=== PATIENT | female | born 1985 | race Two or more races ===

== ENCOUNTER 2023-01-29 20:41 | Inpatient (IN) | payer MEDICAID, OTHER ==
[~2023-01-29] VITALS: Ht 170.2 cm; Wt 113.4 kg
[2023-01-29 21:54] LABS: Eosinophils # (auto) 0 10 ^3/uL (0-0.8); Eosinophils % (auto) 0.7 % (0.0-7.0); Hemoglobin 8.6 g/dL (12.2-16.2); INR 0.98 (0.9-1.15); Mean Corpuscular Volume 70.8 fL (80.0-100.0); Monocytes # (auto) 0.3 10 ^3/uL (0-1.3); Nucleated Red Blood Cells % 0.1 %; Partial Thromboplastin Time 25.4 SEC (24.5-34.5); Prothrombin Time 10.3 sec (9.3-11.8); Red Cell Distribution Width 21.6 % (11.8-14.3); White Blood Cell 3.3 10^3/uL (4.4-10.8)
[2023-01-29 21:55] LABS: Basophils # (auto) 0 10 ^3/uL (0-0.2); Hematocrit 28.4 % (36.0-46.0); Lymphocytes # (auto) 1.1 10 ^3/uL (0.4-5.4); Lymphocytes % (auto) 32.1 % (10.0-50.0); Mean Corpuscular Hemoglobin 21.4 pg (28.0-32.0); Mean Corpuscular Hgb Conc. 30.2 g/dL (32.0-36.0); Monocytes % (auto) 9.7 % (0.0-12.0); Neutrophils # (auto) 1.9 10 ^3/uL (1.6-8.6); Neutrophils % (auto) 56.5 % (37.0-80.0); Red Blood Cells 4.02 10^6/uL (4.0-5.20)
[2023-01-29 22:01] LABS: Alanine Aminotransferase 125 U/L (7-40); Albumin 4.1 g/dL (3.2-4.8); Alkaline Phosphatase 190 U/L (46-116); Anion Gap 13 (5-15); Aspartate Aminotransferase 538 U/L (13-40); BUN/Creatinine Ratio 11.7 (10.0-20.0); Bilirubin, Total 0.9 mg/dL (0.2-1.0); Blood Urea Nitrogen 7 mg/dL (9-23); Calcium 8.2 mg/dL (8.7-10.4); Carbon Dioxide 21 mmol/L (20-30); Chloride 105 mmol/L (98-107); Glucose 86 mg/dL (74-106); Potassium 3.3 mmol/L (3.5-5.1); Sodium 139 mmol/L (136-145); Total Protein 6.9 g/dL (5.7-8.2)
[2023-01-29 22:09] LABS: Blood Alcohol 314.9 mg/dL (<10)
[2023-01-29 22:15] LABS: Hypochromia Moderate; Platelet Estimate Adequate
[2023-01-29 22:16] LABS: Anisocytosis Slight; Stomatocytes Few
[2023-01-29 22:17] LABS: Tear Drop Cells FEW
[2023-01-29] MEDS ORDERED: ASPirin 325 MG TAB PO ONE (23:00)
[2023-01-29] MEDS ORDERED: NITROGLYCERIN 2% OINT 1GM PKG TD ONE (23:00)
[2023-01-30] MEDS ORDERED: HYDROcodone-ACET 5/325MG TAB PO PRN (00:15)
[2023-01-30] MEDS ORDERED: DOCUSATE SOD 100 MG CAP PO PRN (00:15)
[2023-01-30] MEDS ORDERED: MORPHINE SULFATE INJ 2 MG/ml SYRG IV PRN (00:15)
[2023-01-30] MEDS ORDERED: ACETAMINOPHEN 325 MG TAB PO PRN (00:15)
[2023-01-30] MEDS ORDERED: THIAMINE HCL 100 MG TAB PO ONE (00:15)
[2023-01-30] MEDS ORDERED: ONDANSETRON HCL 4 MG/2 ML VIAL IV PRN (00:15)
[2023-01-30] MEDS ORDERED: NITROGLYCERIN 0.4 MG SL TAB SL PRN (00:15)
[2023-01-30] MEDS ORDERED: MULTIPLE VITAMIN TAB PO ONE (00:15)
[2023-01-30] MEDS ORDERED: LORazepam 2MG/ML-1ML VIAL IV PRN (00:15)
[2023-01-30] MEDS ORDERED: FOLIC ACID 1 MG TAB PO ONE (00:15)
[2023-01-30 00:45] VITALS: PULSE 97; RESP 18; O2SAT 98
[2023-01-30 01:31] LABS: % Iron Saturation 7.7 % (15-50)
[2023-01-30] MEDS: SODIUM CHLOR 0.9% PF (SALINE LOCK) 10ML VIAL/SYR IV SCH ×3 (07:40→22:56)
[2023-01-30 08:50] VITALS: PULSE 93; RESP 17; O2SAT 99
[2023-01-30] MEDS ORDERED: NALT50TA27 PO (09:21)
[2023-01-30 09:28] VITALS: BP 121/66; PULSE 86; RESP 15; TEMP 97.9; O2SAT 92
[2023-01-30] MEDS ORDERED: FOLIC ACID 1 MG TAB PO SCH (10:00)
[2023-01-30] MEDS ORDERED: MULTIPLE VITAMIN TAB PO SCH (10:00)
[2023-01-30] MEDS ORDERED: ENOXAPARIN SOD 40 MG/0.4 ML SYRINGE SC SCH (10:00)
[2023-01-30] MEDS ORDERED: THIAMINE HCL 100 MG TAB PO SCH (10:00)
[2023-01-30] MEDS ORDERED: POTASSIUM CHL 20 Meq TABLET PO ONE (12:15)
[2023-01-30] MEDS ORDERED: NICOTINE 21MG/24 HR TOPICAL PATCH TD ONE (12:15)
[2023-01-30] MEDS ORDERED: PANTOPRAZOLE 40 MG/10 ML VIAL INJ IV ONE (12:15)
[2023-01-30] MEDS ORDERED: SODIUM CHLORIDE 0.9% 1,000 ML IV SCH (12:15)
[2023-01-30 12:43] VITALS: BP 115/54; PULSE 90; RESP 15; TEMP 98.1; O2SAT 95
[2023-01-30 12:53] LABS: Triglycerides 65 mg/dL (< 150)
[2023-01-30 12:54] LABS: LDL Cholesterol 108 mg/dL (< 100)
[2023-01-30 12:55] LABS: Cholesterol 229 mg/dL (< 200); HDL Cholesterol 104 mg/dL (40-59)
[2023-01-30] MEDS: LORazepam 0.5 MG TAB PO PRN ×4 (13:54→22:55)
[2023-01-30 16:43] VITALS: BP 121/67; PULSE 101; RESP 14; TEMP 97.9; O2SAT 94
[2023-01-30] MEDS ORDERED: FOLIC ACID 1 MG, MAGNESIUM SULF SDV 50% 8 MEQ, MULTIPLE VITAMIN 10 ML, THIAMINE INJ 100... INJ SCH ×5 (18:00)
[2023-01-30 18:16] LABS: Urine Bacteria FEW /hpf (None Seen); Urine Blood Negative /uL (Negative); Urine Clarity HAZY (Clear); Urine Color Yellow (Yellow); Urine Mucus FEW (None Seen); Urine Protein, UAD TRACE (Negative); Urine WBC 12 /hpf (0 - 5)
[2023-01-30 18:20] LABS: Amphetamine Screen, Urine Pos (NEGATIVE)
[2023-01-30 18:21] LABS: Benzodiazephine Screen, Urine Neg (NEGATIVE)
[2023-01-30 18:22] LABS: Barbiturate Scree,Urine Neg (NEGATIVE); Cannabinoid Screen, Urine Pos (NEGATIVE); Cocaine Screen, Urine Neg (NEGATIVE); Opiate Scree,Urine Pos (NEGATIVE); Phencyclidine Screen, Urine Neg (NEGATIVE)
[2023-01-30 20:30] VITALS: PULSE 128; RESP 18
[2023-01-31] MEDS ORDERED: NICOTINE 21MG/24 HR TOPICAL PATCH TD SCH (10:00)
[2023-01-31] MEDS ORDERED: PANTOPRAZOLE 40 MG/10 ML VIAL INJ IV SCH (10:00)
[2023-02-01 09:35] LABS: Hepatitis B Surface Antigen Negative (Negative)
[2023-02-01 10:13] LABS: Hepatitis C Antibody Negative (Negative)
[2023-02-01 13:24] LABS: Hepatitis B Surface Antigen Negative (Negative)
[2023-02-01 13:44] LABS: Hepatitis A Ab IgM Negative
[2023-02-01 13:45] LABS: Hepatitis B Core IgM Negative; Hepatitis C Antibody Negative (Negative)
== END 2023-01-30 23:40 | disposition left against medical advice (07) | DRG 280 ==
LOC: EDBD 20:41 → ER 20:41 → TELE 01-30 00:10 → TELE-EAST 01-30 09:05
PROVIDERS: ADMIT Internal Medicine; ATTEND Internal Medicine
DX: K70.10 Alcoholic hepatitis without ascites (principal); I21.A1 Myocardial infarction type 2; K92.2 Gastrointestinal hemorrhage, unspecified; D50.9 Iron deficiency anemia, unspecified; E66.9 Obesity, unspecified; F10.129 Alcohol abuse with intoxication, unspecified; E78.5 Hyperlipidemia, unspecified; F15.90 Other stimulant use, unspecified, uncomplicated; Z53.29 Procedure and treatment not carried out because of patient's decision for other reasons; F17.210 Nicotine dependence, cigarettes, uncomplicated; F41.9 Anxiety disorder, unspecified; J45.909 Unspecified asthma, uncomplicated; Z68.39 Body mass index [BMI] 39.0-39.9, adult; Z88.8 Allergy status to other drugs, medicaments and biological substances; Z82.3 Family history of stroke; Z71.6 Tobacco abuse counseling
CPT/HCPCS: 36415; 71045; 76705; 80053; 80061; 80074; 80307; 80320; 81001; 81025; 82728; 83540; 83550; 83735; 83880; 84443; 84484; 85025; 85610; 85730; 86803; 87340; 93005; 93306; 96361; 96365; 96375; C9113; G0378

== ENCOUNTER 2024-07-05 19:24 | Inpatient (IN) | payer MEDICAID ==
[~2024-07-05] VITALS: Ht 162.6 cm; Wt 87.3 kg
[~2024-07-05 19:24] MED LIST: NALT50TA27 PO
--- NOTE | 2024-07-05 19:47 | ED.PDOC ---
GI ASSESSMENT HPI Comments 38 year old female came to ER via EMS fo abdominal pain. Per EMS, patient was seen by family members slumped inside her car at the driveway. Patient appeared confused, disoriented and altered. Noted to be jaundiced. Patient complaining of nausea an abdominal pain. Patient reeks of alcohol. Patient has history of liver disease (cirrhosis), alcoholism and polysubstance abuse Chief Complaint: Abdominal Pain Time Seen by MD: 19:46 Reviewed Notes: Channel Account Manager Notes Allergies: Coded Allergies: Gabapentin (Verified Allergy, Unknown, 01/29/23) Home Meds Reported Medications Naltrexone HCl (Naltrexone Hydrochloride) 50 Mg Tab, 50 MG PO, TAB 01/30/23 Information Source: Patient, Emergency Med Personnel Mode of Arrival: EMS Timing: Hours Duration: Since onset Prehospital treatment: Accucheck Quality: Aching Vomitus: None Stool: Normal Severity: Moderate Recent: Ingestion of ETOH Recent Hx of: Liver Disease Pain Location: Diffuse Associated sign and symptoms: Abdominal Pain Past Medical History PAST MEDICAL HISTORY: Cancer, Liver Surgical History: Denies all surgeries GROUP RESERVATIONS COORDINATOR History: Denies all GROUP RESERVATIONS COORDINATOR Hx Family History Family History: Reviewed,noncontributory to illness Social History Smoker: Cigarettes Alcohol: Heavy Drugs: Marijuana, Methamphetamine Lives In: Home Constitutional: denies: chills, diaphoresis, fatigue, fever, malaise, sweats, weakness, others EENTM: denies: blurred vision, double vision, ear bleeding, ear discharge, ear drainage, ear pain, ear ringing, eye pain, eye redness, hearing loss, mouth pain, mouth swelling, nasal discharge, nose bleeding, nose congestion, nose pain, photophobia, tearing, throat pain, throat swelling, voice changes, others Respiratory: denies: cough, hemoptysis, orthopnea, SOB at rest, shortness of breath, SOB with excertion, stridor, wheezing, others Cardiovascular: denies: chest pain, dizzy spells, diaphoresis, Dyspnea on exertion, edema, irregular heart beat, left arm pain, lightheadedness, palpitations, PND, syncope, others Gastrointestinal: reports: abdominal pain, nausea; denies: abdomen distended, blood streaked bowels, constipated, diarrhea, dysphagia, difficulty swallowing, hematemesis, melena, poor appetite, poor fluid intake, rectal bleeding, rectal pain, vomiting, others Genitourinary: denies: abnormal vagina bleeding, burning, dyspareunia, dysuria, flank pain, frequency, hematuria, incontinence, pain, , vagina discharge, urgency, others Neurological: denies: dizziness, fainting, headache, left sided numbness, left sided weakness, numbness, paresthesia, pre-existing deficit, right sided numbness, right sided weakness, seizure, speech problems, tingling, tremors, weakness, others Musculoskeletal: denies: back pain, gout, joint pain, joint swelling, muscle pain, muscle stiffness, neck pain, others Integumetry: denies: bruises, change in color, change in hair/nails, dryness, laceration, lesions, lumps, rash, wounds, others Allergic/Immunocompromised: denies: Difficulty Healing, Frequent Infections, Hives, Itching, others Hematologic/Lymphatic: denies: anemia, blood clots, easy bleeding, easy bruising, swollen glands, others Endocrine: denies: excessive hunger, excessive sweating, excessive thirst, excessive urination, flushing, intolerance to cold, intolerance to heat, unexplained weight gain, unexplained weight loss, others Psychiatric: denies: anxiety, bipolar disorder, depression, hopeless, panic disorder, schizophrenia, sleepless, suicidal, others Physical Exam General Appearance: No Apparent Distress, Normal HEENT: Normal ENT Inspection, Pharynx Normal, TMs Normal Neck: Full Range of Motion, Non-Tender, Normal, Normal Inspection Respiratory: Chest Non-Tender, Lungs Clear, No Accessory Muscle Use, No Respiratory Distress, Normal Breath Sounds Cardiovascular: No Edema, No JVD, No Murmur, No Gallop, Normal Peripheral Pulses, Regular Rate/Rhythm Breast Exam: Deferred Gastrointestinal: No Organomegaly, Non Tender, No Pulsatile Mass, Normal Bowel Sounds, Soft Genitalia: Deferred Pelvic: Deferred Rectal: Deferred Extremities: No calf tenderness, Normal capillary refill, Normal inspection, Normal range of motion, Non-tender, No pedal edema Musculoskeletal : Apperance: Normal Neurologic: Alert, cafe team member II-XII nml as Tested, No Motor Deficits, Normal Affect, Normal Mood, No Sensory Deficits Cerebellar Function: Normal Reflexes: Normal Skin: Dry, Jaundice, Warm Lymphatic: No Adenopathy Was a procedure done? Was a procedure done?: No GI differential Dx Differential Diagnosis: Gastritis/PUD, Gastroenteritis, Hepatitis, Pancreatitis, Dehydration, Electrolyte Imbalance, Viral X-Ray, Labs, Meds, VS Vital Signs Date Time Temp Pulse Resp B/P (MAP) Pulse Ox O2 Delivery O2 Flow Rate FiO2 07/05/24 21:00 119 20 106/62 (77) 96 07/05/24 20:00 99.1 120 20 109/75 (86) 95 99.1 07/05/24 19:24 98.5 113 16 124/76 (92) 97 98.5 Lab Test 07/05/24 21:34 07/05/24 19:46 Range/Units Lactic Acid Level 4.8 *H 5.1 *H 0.4-2.0 mmol/L White Blood Count 6.4 4.4-10.8 10^3/uL Red Blood Count 3.21 L 4.0-5.20 10^6/uL Hemoglobin 10.0 L 12.2-16.2 g/dL Hematocrit 30.5 L 36.0-46.0 % Mean Corpuscular Volume 95.0 80.0-100.0 fL Mean Corpuscular Hemoglobin 31.2 28.0-32.0 pg Mean Corpuscular Hemoglobin Concent 32.9 32.0-36.0 g/dL Red Cell Distribution Width 24.5 H 11.8-14.3 % Platelet Count 202 140-450 10^3/uL Mean Platelet Volume 7.3 6.9-10.8 fL Neutrophils (%) (Auto) 70.8 37.0-80.0 % Lymphocytes (%) (Auto) 16.7 10.0-50.0 % Monocytes (%) (Auto) 11.3 0.0-12.0 % Eosinophils (%) (Auto) 0.4 0.0-7.0 % Basophils (%) (Auto) 0.8 0.0-2.0 % Neutrophils # (Auto) 4.5 1.6-8.6 10 ^3/uL Lymphocytes # (Auto) 1.1 0.4-5.4 10 ^3/uL Monocytes # (Auto) 0.7 0-1.3 10 ^3/uL Eosinophils # (Auto) 0 0-0.8 10 ^3/uL Basophils # (Auto) 0 0-0.2 10 ^3/uL Nucleated Red Blood Cells 0.1 % Sodium Level 132 L 136-145 mmol/L Potassium Level 2.9 L 3.5-5.1 mmol/L Chloride Level 91 L 98-107 mmol/L Carbon Dioxide Level 21 20-31 mmol/L Anion Gap 20 H 5-15 Blood Urea Nitrogen < 5 L 9-23 mg/dL Creatinine 0.51 L 0.550-1.02 mg/dL Glomerular Filtration Rate Calc 122 >90 mL/min BUN/Creatinine Ratio 9.8 L 10.0-20.0 Serum Glucose 83 74-106 mg/dL Calcium Level 9.4 8.7-10.4 mg/dL Total Bilirubin 13.8 H 0.2-1.0 mg/dL Aspartate Amino Transferase (AST) 402 H 13-40 U/L Alanine Aminotransferase (ALT) 68 H 7-40 U/L Alkaline Phosphatase 265 H 46-116 U/L Ammonia 21 11-32 umol/L Total Protein 6.9 5.7-8.2 g/dL Albumin 3.3 3.2-4.8 g/dL Lipase 25 12-53 U/L Plasma/Serum Blood Alcohol 193.0 H <10 mg/dL Current Medications Medications (Trade) Dose Ordered Sig/Joan Route Start Time Stop Time Status Last Admin Acetaminophen (Ofirmev) 1,000 mg ONCE ONCE IV 07/05/24 20:30 07/05/24 20:49 DC 07/05/24 21:01 Ondansetron HCl (Zofran) 4 mg ONCE ONCE IV 07/05/24 20:30 07/05/24 20:49 DC 07/05/24 21:01 Time of 1ST Reevaluation: 19:41 Reevaluation 1ST: Improved Patient Education/Counseling: Diagnosis, Treatment Family Education/Counseling: No Family Present Sepsis Sepsis Reasesment Focused Exam Orders: Laboratory Tests 07/05/24 19:46: Lactic Acid Level 5.1 07/05/24 21:34: Lactic Acid Level 4.8 Departure 1 Departure Time of Disposition: 22:23 (Patient with a hepatic encephalopathy and end-stage liver disease. Patient has elevated lactic acid however this is a type B lactic acid secondary to liver disease. We will admit patient for further workup and expert consultation.) Impression: Primary Impression: Hepatic encephalopathy Additional Impressions: Altered mental status Qualified Codes: R41.0 - Disorientation, unspecified End stage liver disease Alcohol intoxication Qualified Codes: F10.921 - Alcohol use, unspecified with intoxication delirium Disposition: ADMITTED INPATIENT Admit to: [facility] Condition: Critical Critical Care Note Critical Care Time?: Yes (35 min-critical care time only) Critical care comment: ALOC Authorized and Performed by: Alfredo Peralta MD Total critical care time: Approximately 49 minutes Due to a high probability of clinically significant, life threatening deter ioration, the patient required my highest level of preparedness to intervene emergently and I personally spent this critical care time directly and personally managing the patient. This critical care time included obtaining a history; examining the patient; pulse oximetry; ordering and review of studies; arranging urgent treatment with development of a management plan; evaluation of patient's response to treatment; frequent reassessment; and, discussions with other providers. This critical care time was performed to assess and manage the high probability of imminent, life-threatening deterioration that could result in multi-organ fa ilure. It was exclusive of separately billable procedures and treating other patients and teaching time. Please see my other sections and the rest of the note for further information on patient assessment and treatment. Stability Stability form required: No Heart Score Heart Score: Heart Score Response (Comments) Value History N/A 0 EKG N/A 0 Age N/A 0 Risk Factors N/A 0 Troponin N/A 0 Total 0 I personally scribed for ALFREDO PERALTA MD ([email or web address]) on 07/05/24 at 19:47. Electronically submitted by Jose Polk ([email or web address]). ALFREDO PERALTA MD July 05, 2024 19:47
[2024-07-05 20:05] VITALS: PULSE 120; RESP 20; O2SAT 95
[2024-07-05 20:13] LABS: Basophils # (auto) 0 10 ^3/uL (0-0.2); Basophils % (auto) 0.8 % (0.0-2.0); Eosinophils # (auto) 0 10 ^3/uL (0-0.8); Eosinophils % (auto) 0.4 % (0.0-7.0); Hematocrit 30.5 % (36.0-46.0); Lymphocytes # (auto) 1.1 10 ^3/uL (0.4-5.4); Lymphocytes % (auto) 16.7 % (10.0-50.0); Mean Corpuscular Hemoglobin 31.2 pg (28.0-32.0); Mean Corpuscular Hgb Conc. 32.9 g/dL (32.0-36.0); Monocytes # (auto) 0.7 10 ^3/uL (0-1.3); Monocytes % (auto) 11.3 % (0.0-12.0); Neutrophils # (auto) 4.5 10 ^3/uL (1.6-8.6); Neutrophils % (auto) 70.8 % (37.0-80.0); Nucleated Red Blood Cells % 0.1 %; Platelet Count (auto) 202 10^3/uL (140-450); Red Blood Cells 3.21 10^6/uL (4.0-5.20); Red Cell Distribution Width 24.5 % (11.8-14.3); White Blood Cell 6.4 10^3/uL (4.4-10.8)
[2024-07-05 20:21] LABS: Albumin 3.3 g/dL (3.2-4.8); Alkaline Phosphatase 265 U/L (46-116); Anion Gap 20 (5-15); Blood Urea Nitrogen < 5 mg/dL (9-23); Calcium 9.4 mg/dL (8.7-10.4); Carbon Dioxide 21 mmol/L (20-31); Chloride 91 mmol/L (98-107); Glucose 83 mg/dL (74-106); Potassium 2.9 mmol/L (3.5-5.1); Sodium 132 mmol/L (136-145)
[2024-07-05 20:24] LABS: Alanine Aminotransferase 68 U/L (7-40); Aspartate Aminotransferase 402 U/L (13-40); BUN/Creatinine Ratio 9.8 (10.0-20.0); Bilirubin, Total 13.8 mg/dL (0.2-1.0); Total Protein 6.9 g/dL (5.7-8.2)
[2024-07-05 20:26] LABS: Lactic Acid w/Reflex 5.1 mmol/L (0.4-2.0)
[2024-07-05 20:34] LABS: Lipase 25 U/L (12-53)
[2024-07-05] MEDS: ONDANSETRON HCL 4 MG/2 ML VIAL IV ONE ×2 (21:01→23:58)
[2024-07-05] MEDS: ACETAMINOPHEN IV 1000 MG/100ML (10MG/ML) IV ONE (21:01)
[2024-07-05] MEDS: IOHEXOL 300 MG/ML 100ML BOTTLE IJ ONE (21:34)
--- NOTE | 2024-07-05 21:45 | DVH ---
CT HEAD WITHOUT CONTRAST INDICATION: ams COMPARISON: None TECHNIQUE: CT of the head without intravenous contrast. RADIATION DOSE: CTDIvol: mGy, DLP: mGy*cm FINDINGS: There is no evidence of intracranial hemorrhage, infarct, extra-axial collection, mass effect, midlin e shift, herniation or hydrocephalus. The ventricles, sulci and cisterns are normal. The walker-white d ifferentiation is normal. Visualized paranasal sinuses and mastoid air cells are clear. Soft tissues and osseous structures are unremarkable. IMPRESSION: No intracranial abnormality identified.
--- NOTE | 2024-07-05 21:48 | DVH ---
CHEST RADIOGRAPH Indication: ammonia Technique: Single frontal view of the chest was obtained COMPARISON: XY CHEST PORTABLE on DOS: 01/29/23 FINDINGS: Lines and Tubes: None Lungs: Lung volumes are low. No pulmonary infiltrates or edema. Pleura: No effusion. No pneumothorax. Cardiomediastinal contours: Unremarkable IMPRESSION: No abnormality demonstrated.
--- NOTE | 2024-07-05 22:07 | DVH ---
Exam: CT CT AB PEL WITH IV CON ONLY History: ams Comparison Study: None Contrast: Type of contrast: Omni 300 Contrast injected: 100 mL Contrast wasted: 0 TECHNIQUE: A digital lead refiner image was obtained. During the uneventful, intravenous administration of c ontrast material, multislice data acquisition was obtained through the abdomen and pelvis. The data s et was subsequently reconstructed into axial images. Images were reviewed on a work station using a c ombination of axial and multiplanar using a variety of window levels and settings. Radiation Dose Information: CT Dose: CTDI volume is 18.85 mGy. Dose-length product is 1199 point 3 1 mGy*cm FINDINGS: Lung Bases: No acute or significant lung base finding. Normal heart size. No pleural or pericardial effusion. Liver: Hepatic steatosis, hepatomegaly with the liver measuring 30 cm Gallbladder and Biliary Tree: Calcified gallstones Spleen: Unremarkable Pancreas: The pancreas is normal in appearance without focal lesions or abnormal enhancement. Adrenal Glands: Unremarkable Kidneys: Kidneys demonstrate normal symmetric enhancement without focal lesions, calculi or hydroneph rosis. Bladder: Unremarkable Bowel: The stomach is grossly normal in appearance. Small bowel and colon are normal in caliber and d istribution. The appendix is not visualized; however, no secondary findings of acute appendicitis donnell ntified. Ascites: Absent Lymphadenopathy: No mesenteric, retroperitoneal or periportal lymphadenopathy. Abdominal Wall and Mesentery: Unremarkable. Vasculature: The visualized abdominal aorta is normal in size and caliber. Abdominal and pelvic vess els demonstrate normal enhancement. Pelvic Organs: Unremarkable Musculoskeletal: No aggressive focal bony lesions, acute fractures or dislocation. Soft tissues: Unremarkable. IMPRESSION: 1. Hepatomegaly with hepatic steatosis. 2. Cholelithiasis 3. 3-4 mm right intrarenal calculus. All CT scans at this medical facility are performed using dose modulation techniques as appropriate t o a performed exam including the following: Automated exposure control was utilized; adjustment of th e MA and/or KV according to patient size; and use of iterative reconstruction technique.
[2024-07-05] MEDS ORDERED: POTASSIUM CHL 20MEQ/100ML 100 ML IV SCH (22:30)
[2024-07-05] MEDS: POTASSIUM CHL 20 Meq TABLET PO ONE (22:39)
[2024-07-05] MEDS: SODIUM CHLORIDE 0.9% 1,000 ML IV ONE (23:44)
[2024-07-05 23:48] LABS: INR 1.14 (0.9-1.15); Prothrombin Time 11.9 sec (9.3-11.8)
[2024-07-05] MEDS: MORPHINE SULFATE 4 MG/ML SYR/VIAL IV ONE (23:59)
[2024-07-06] MEDS ORDERED: DOCUSATE SOD 100 MG CAP PO PRN
[2024-07-06] MEDS ORDERED: NITROGLYCERIN 0.4 MG SL TAB SL PRN
--- NOTE | 2024-07-06 | DVHHP2 ---
History of Present Illness Reason for Visit: Hepatic encephalopathy History of Present Illness The patient is a 38-year-old female with past medical history of liver cancer, depression, and hypothyroidism who presented to [facility] ED with complaint of acute abdominal pain. Patient admits to heavy alcohol drinker, appeared confused, disoriented, altered, noted to be jaundice, associated nausea. Patient was seen and evaluated in the ED, laboratory data shows WBC 6.4, hemoglobin 10.0, hematocrit 30.5, platelets 202, sodium 132, potassium 2.9, BUN 5, creatinine 0.51, glucose 83, total bilirubin 13.8, lactic acid 5.1 trending down to 4.8, AST 402, AST 68, alkaline phos 193.0, ammonia 21, lipase 25, blood pressure 108/65, heart rate 116, temperature 99.1 F, O2 saturation 94% on oxygen. Abdomen/pelvis CT revealing hepatomegaly with hepatic steatosis, cholelithiasis, 3-4 mm right intrarenal calculus. Patient was given IV morphine sulfate 4 mg x 1, please see medication orders section in the computer. On my assessment, patient denied chest pain, no headache, no dizziness, currently on oxygen, no diarrhea, no nausea, no vomiting, no fever, no chills. Patient was admitted for further evaluation and medical management. Past Medical History Cancer, Liver cirrhosis, depression, hypothyroidism. Past Surgical History Denies all surgeries Family History Reviewed, noncontributory to the management of this case. Past Social History The patient lives at home, smokes cigarettes, drinks alcohol heavily, uses marijuana and methamphetamine. Review of Systems Constitutional: Yes: Weakness; No: Fever, Chills, Sweats, Malaise, Other Eyes: No: Pain, Vision change, Conjunctivae inflammation, Eyelid inflammation, Other, Redness ENT: No: Ear pain, Ear discharge, Nose pain, Nose discharge, Nose congestion, Mouth pain, Mouth swelling, Throat pain, Throat swelling, Other Respiratory: No: Cough, Dry, Shortness of breath, SOB with excertion, Wheezing, Hemoptysis, Pleuritic Pain, Sputum, Wheezing, Other Cardiovascular: No: Chest Pain, Palpitations, Orthopnea, Paroxysmal Noc. Dyspnea, Edema, Lt Headedness, Other Gastrointestinal: Nausea, Abdominal Pain; No: Vomiting, Diarrhea, Constipation, Melena, Hematochezia, Other Genitourinary: No Dysuria, No Frequency, No Incontinence, No Hematuria, No Retention, No Other Musculoskeletal: No: other, neck pain, shoulder pain, arm pain, back pain, hand pain, leg pain, foot pain Skin: Jaundice; No: Rash, Lesions, Bruising, Other Neurological: No: Weakness, Numbness, Incoordination, Change in speech, Confusion, Seizures, Other Allergies: Coded Allergies: Gabapentin (Verified Allergy, Unknown, 01/29/23) Potassium Chloride (Verified Adverse Reaction, Severe, 07/05/24) SEVERE ADVREAC TO IV FORM OF POTASSIUM Exam Vital Signs Vital Signs Date Time Temp Pulse Resp B/P (MAP) Pulse Ox O2 Delivery O2 Flow Rate FiO2 07/05/24 23:59 124 20 111/73 07/05/24 23:00 94 07/05/24 20:05 Room Air* 0 21 07/05/24 20:00 99.1 99.1 General Appearance: Alert, Oriented X3, Cooperative, No acute distress HEENT: Atraumatic, PERRLA, EOMI, Mucous membr. moist/pink Respiratory: Clear to auscultation, Normal air movement Cardiovascular: Regular rate, Normal S1, Normal S2, No murmurs Abdominal: Normal bowel sounds, Soft, No masses, Other (Reports tenderness) Extremities: No clubbing, No cyanosis, No edema, Normal pulses, No tenderness/swelling Skin: No rashes, No breakdown, No significant lesion Neuro: Normal speech, Normal tone, Sensation intact, Cranial nerves 3-12 NL, Reflexes 2+, Other (Generalized weakness) Psych/Mental Status: Mental status NL, Mood NL Labs/Xrays Labs Test 07/05/24 21:34 07/05/24 19:46 Range/Units Lactic Acid Level 4.8 *H 0.4-2.0 mmol/L White Blood Count 6.4 4.4-10.8 10^3/uL Red Blood Count 3.21 L 4.0-5.20 10^6/uL Hemoglobin 10.0 L 12.2-16.2 g/dL Hematocrit 30.5 L 36.0-46.0 % Mean Corpuscular Volume 95.0 80.0-100.0 fL Mean Corpuscular Hemoglobin 31.2 28.0-32.0 pg Mean Corpuscular Hemoglobin Concent 32.9 32.0-36.0 g/dL Red Cell Distribution Width 24.5 H 11.8-14.3 % Platelet Count 202 140-450 10^3/uL Mean Platelet Volume 7.3 6.9-10.8 fL Neutrophils (%) (Auto) 70.8 37.0-80.0 % Lymphocytes (%) (Auto) 16.7 10.0-50.0 % Monocytes (%) (Auto) 11.3 0.0-12.0 % Eosinophils (%) (Auto) 0.4 0.0-7.0 % Basophils (%) (Auto) 0.8 0.0-2.0 % Neutrophils # (Auto) 4.5 1.6-8.6 10 ^3/uL Lymphocytes # (Auto) 1.1 0.4-5.4 10 ^3/uL Monocytes # (Auto) 0.7 0-1.3 10 ^3/uL Eosinophils # (Auto) 0 0-0.8 10 ^3/uL Basophils # (Auto) 0 0-0.2 10 ^3/uL Nucleated Red Blood Cells 0.1 % Prothrombin Time 11.9 H 9.3-11.8 sec Prothrombin Time INR 1.14 0.9-1.15 Sodium Level 132 L 136-145 mmol/L Potassium Level 2.9 L 3.5-5.1 mmol/L Chloride Level 91 L 98-107 mmol/L Carbon Dioxide Level 21 20-31 mmol/L Anion Gap 20 H 5-15 Blood Urea Nitrogen < 5 L 9-23 mg/dL Creatinine 0.51 L 0.550-1.02 mg/dL Glomerular Filtration Rate Calc 122 >90 mL/min BUN/Creatinine Ratio 9.8 L 10.0-20.0 Serum Glucose 83 74-106 mg/dL Calcium Level 9.4 8.7-10.4 mg/dL Total Bilirubin 13.8 H 0.2-1.0 mg/dL Aspartate Amino Transferase (AST) 402 H 13-40 U/L Alanine Aminotransferase (ALT) 68 H 7-40 U/L Alkaline Phosphatase 265 H 46-116 U/L Ammonia 21 11-32 umol/L Total Protein 6.9 5.7-8.2 g/dL Albumin 3.3 3.2-4.8 g/dL Lipase 25 12-53 U/L Plasma/Serum Blood Alcohol 193.0 H <10 mg/dL PATIENT: MIMA STANLEY ACCT: [id number] UNIT: [id number] : 1985 LOC: ER ROOM / BED: / AGE / SEX: 38 / F ADM STATUS: REG ER SERVICE 35 ORDERING PHYSICIAN: ALFREDO IRVING MD PROCEDURE(s): ABPLIV - CT AB PEL WITH IV CON ONLY REASON: ams ORDER NUMBER(s): [id number], ACCESSION NUMBER(s): [id number] Exam: CT CT AB PEL WITH IV CON ONLY History: ams Comparison Study: None Contrast: Type of contrast: Omni 300 Contrast injected: 100 mL Contrast wasted: 0 TECHNIQUE: A digital bookkeeper assistant image was obtained. During the uneventful, intravenous administration of contrast material, multislice data acquisition was obtained through the abdomen and pelvis. The data set was subsequently reconstructed into axial images. Images were reviewed on a work station using a combination of axial and multiplanar using a variety of window levels and settings. Radiation Dose Information: CT Dose: CTDI volume is 18.85 mGy. Dose-length product is 1199 point 3 1 mGy*cm FINDINGS: Lung Bases: No acute or significant lung base finding. Normal heart size. No pleural or pericardial effusion. Liver: Hepatic steatosis, hepatomegaly with the liver measuring 30 cm Gallbladder and Biliary Tree: Calcified gallstones Spleen: Unremarkable Pancreas: The pancreas is normal in appearance without focal lesions or abnormal enhancement. Adrenal Glands: Unremarkable Kidneys: Kidneys demonstrate normal symmetric enhancement without focal lesions, calculi or hydronephrosis. Bladder: Unremarkable Bowel: The stomach is grossly normal in appearance. Small bowel and colon are normal in caliber and distribution. The appendix is not visualized; however, no secondary findings of acute appendicitis identified. Ascites: Absent Lymphadenopathy: No mesenteric, retroperitoneal or periportal lymphadenopathy. Abdominal Wall and Mesentery: Unremarkable. Vasculature: The visualized abdominal aorta is normal in size and caliber. Abdominal and pelvic vessels demonstrate normal enhancement. Pelvic Organs: Unremarkable Musculoskeletal: No aggressive focal bony lesions, acute fractures or dislocation. Soft tissues: Unremarkable. IMPRESSION: 1. Hepatomegaly with hepatic steatosis. 2. Cholelithiasis 3. 3-4 mm right intrarenal calculus. ORDERING PHYSICIAN: ALFREDO IRVING MD PROCEDURE(s): CXRP - CHEST PORTABLE REASON: ammonia ORDER NUMBER(s): [id number], ACCESSION NUMBER(s): [id number] CHEST RADIOGRAPH Indication: ammonia Technique: Single frontal view of the chest was obtained COMPARISON: XY CHEST PORTABLE on DOS: 01/29/23 FINDINGS: Lines and Tubes: None Lungs: Lung volumes are low. No pulmonary infiltrates or edema. Pleura: No effusion. No pneumothorax. Cardiomediastinal contours: Unremarkable IMPRESSION: No abnormality demonstrated. ORDERING PHYSICIAN: ALFREDO IRVING MD PROCEDURE(s): HWOCT - HEAD WITHOUT CONTRAST REASON: ams ORDER NUMBER(s): [id number], ACCESSION NUMBER(s): [id number] CT HEAD WITHOUT CONTRAST INDICATION: ams COMPARISON: None TECHNIQUE: CT of the head without intravenous contrast. RADIATION DOSE: CTDIvol: mGy, DLP: mGy*cm FINDINGS: There is no evidence of intracranial hemorrhage, infarct, extra-axial collecti on, mass effect, midline shift, herniation or hydrocephalus. The ventricles, sulci and cisterns are normal. The walker-white differentiation is normal. Visualized paranasal sinuses and mastoid air cells are clear. Soft tissues and osseous structures are unremarkable. IMPRESSION: No intracranial abnormality identified. ORDERING PHYSICIAN: ALFREDO IRVING MD PROCEDURE(s): GBUS - GALLBLADDER REASON: ruq pain ORDER NUMBER(s): [id number], ACCESSION NUMBER(s): [id number] INDICATION: ruq pain TECHNIQUE: Multiple real-time sonographic images of the abdomen were obtained. COMPARISON: US ABDOMEN LIMITED on DOS: 01/30/23 FINDINGS: Liver is enlarged measuring 23 cm and demonstrates considerably increased ech ogenicity consistent with fatty infiltration. No definite focal lesions identified in the liver. No evidence of intrahepatic or extrahepatic biliary ductal dilatation with the common bile duct measuring 3.5 mm. Several small gallstones are identified in the gallbladder which otherwise appears unremarkable with no evidence of gallbladder wall thickening or pericholycystic fluid. Sonographic Lackey's sign was reportedly negative. Right kidney measures 10.9 cm and appears unremarkable with no hydronephrosis; the small nonobstructing calculus in the lower pole of the right kidney seen on the CT scan performed earlier the same day is not identified on this study. Pancreas is obscured by overlying bowel gas. No free fluid/fluid collection. IMPRESSION: Cholelithiasis without evidence of acute cholecystitis. Hepatomegaly and considerable fatty infiltration of the liver. Assessment/Plan Assessment/Plan Hepatic encephalopathy Altered mental status Elevated liver enzymes Electrolyte imbalance Disorientation, unspecified End stage liver disease Alcohol intoxication Alcohol use, unspecified with intoxication delirium Plan 1. Admit to step-down units 2. Breathing treatment 3. Pain control management 4. Management of fluids and electrolytes 5. Consultation for hospitalist/GI 6. Diagnostic tests abdomen/pelvis CT 7. DVT prophylaxis-on SCDs 8. Repeat labs CBC, CMP in a.m. 9. Continue with current medical management 10. Treatment plan discussed with patient and RN. Patient verbalized understanding. Plan discussed with: Patient, Other (RN) Problem List: (1) Hepatic encephalopathy (2) Alcohol intoxication (3) End stage liver disease (4) Altered mental status (5) Disorientation, unspecified (6) Electrolyte imbalance (7) Elevated liver enzymes (8) Alcohol use, unspecified with intoxication delirium Date of Service: Jul 06, 2024 Billing Provider: JEFFRY CHURCHILL DNP Common Visit Codes: [id number] INP/OBS CARE (HIGH) JEFFRY CHURCHILL DNP Jul 06, 2024 00:00
--- NOTE | 2024-07-06 00:13 | DVH ---
INDICATION: ruq pain TECHNIQUE: Multiple real-time sonographic images of the abdomen were obtained. COMPARISON: US ABDOMEN LIMITED on DOS: 01/30/23 FINDINGS: Liver is enlarged measuring 23 cm and demonstrates considerably increased echogenicity consistent wit h fatty infiltration. No definite focal lesions identified in the liver. No evidence of intrahepatic or extrahepatic biliary ductal dilatation with the common bile duct measu ring 3.5 mm. Several small gallstones are identified in the gallbladder which otherwise appears unremarkable with no evidence of gallbladder wall thickening or pericholycystic fluid. Sonographic Lackey's sign was re portedly negative. Right kidney measures 10.9 cm and appears unremarkable with no hydronephrosis; the small nonobstructi ng calculus in the lower pole of the right kidney seen on the CT scan performed earlier the same day is not identified on this study. Pancreas is obscured by overlying bowel gas. No free fluid/fluid collection. IMPRESSION: Cholelithiasis without evidence of acute cholecystitis. Hepatomegaly and considerable fatty infiltration of the liver.
[2024-07-06] MEDS: LACTULOSE 20Gm/30ML SOLN PO SCH (01:11)
[2024-07-06] MEDS: SODIUM CHLORIDE 0.9% 1,000 ML IV SCH ×2 (01:11→11:15)
[2024-07-06] MEDS: THIAMINE 100mg/ml INJ (200mg/2ml VIAL) IV ONE (01:12)
[2024-07-06] MEDS: FOLIC ACID 1 MG in D5W 5% 50 ML INJ ONE (01:23)
[2024-07-06] MEDS: FOLIC ACID 1 MG TAB PO ONE (01:54)
[2024-07-06] MEDS: HYDROcodone-ACET 5/325MG TAB PO PRN (02:08)
[2024-07-06 04:18] LABS: Basophils # (auto) 0.1 10 ^3/uL (0-0.2); Basophils % (auto) 1.5 % (0.0-2.0); Eosinophils # (auto) 0 10 ^3/uL (0-0.8); Eosinophils % (auto) 0.2 % (0.0-7.0); Hematocrit 27.3 % (36.0-46.0); Lymphocytes # (auto) 1.4 10 ^3/uL (0.4-5.4); Lymphocytes % (auto) 25.4 % (10.0-50.0); Mean Corpuscular Hemoglobin 31.7 pg (28.0-32.0); Mean Corpuscular Hgb Conc. 33.1 g/dL (32.0-36.0); Mean Corpuscular Volume 95.8 fL (80.0-100.0); Monocytes # (auto) 0.5 10 ^3/uL (0-1.3); Monocytes % (auto) 9.7 % (0.0-12.0); Neutrophils # (auto) 3.5 10 ^3/uL (1.6-8.6); Neutrophils % (auto) 63.2 % (37.0-80.0); Nucleated Red Blood Cells % 0.1 %; Platelet Count (auto) 184 10^3/uL (140-450); Red Blood Cells 2.85 10^6/uL (4.0-5.20); Red Cell Distribution Width 24.3 % (11.8-14.3); White Blood Cell 5.5 10^3/uL (4.4-10.8)
[2024-07-06 04:32] LABS: Anion Gap 19 (5-15); Carbon Dioxide 22 mmol/L (20-31)
[2024-07-06 04:38] LABS: BUN/Creatinine Ratio 10.4 (10.0-20.0)
[2024-07-06 04:40] LABS: Alanine Aminotransferase 63 U/L (7-40); Alkaline Phosphatase 233 U/L (46-116); Aspartate Aminotransferase 363 U/L (13-40); Bilirubin, Total 13.4 mg/dL (0.2-1.0); Blood Urea Nitrogen 5 mg/dL (9-23); Calcium 8.6 mg/dL (8.7-10.4); Chloride 93 mmol/L (98-107); Glucose 61 mg/dL (74-106); Potassium 3.4 mmol/L (3.5-5.1); Sodium 134 mmol/L (136-145); Total Protein 6.2 g/dL (5.7-8.2)
[2024-07-06] MEDS: ONDANSETRON HCL 4 MG/2 ML VIAL IV PRN (05:33)
[2024-07-06] MEDS: LEVOTHYROXINE SODIUM 25 MCG TAB PO SCH (05:46)
[2024-07-06] MEDS: IBUPROFEN 400 MG TAB PO PRN (05:48)
--- NOTE | 2024-07-06 06:46 | ECG ---
[facility] Test Date: 2024-07-05 Test Time: 19:52:29 Pat Name: MIMA STANLEY Department: ED Room: 0215T Gender: F Music Pastor: : 1985 Requested By: ALFREDO IRVING Order Number: [id number] Reading MD: Addison Daly Measurements Intervals [place] Rate: 114 P: 15 SD: 118 QRS: 62 QRSD: 97 T: 14 QT: 345 QTc: 476 Interpretive Statements Sinus tachycardia Baseline wander in lead(s) I,II,aVR Electronically Signed On 07-06-2024 22:35:47 PDT by Addison Daly Please click the below link to view image of tracing.
[2024-07-06 07:04] LABS: Urine Bacteria FEW /hpf (None Seen); Urine Blood 2+ /uL (Negative); Urine Clarity Clear (Clear); Urine Color Dark-Yellow (Yellow); Urine Protein, UAD 1+ (Negative); Urine Specific Gravity > 1.050 (1.001-1.035); Urine Squamous Epithelial Cell FEW /hpf (<5); Urine Urobilinogen 8 mg/dL (Negative); Urine WBC 5 /HPF (0-5)
[2024-07-06 08:17] LABS: Lactic Acid w/Reflex 3.8 mmol/L (0.4-2.0)
[2024-07-06] MEDS ORDERED: ONDANSETRON HCL 4 MG/2 ML VIAL IV ONE (08:45)
[2024-07-06] MEDS ORDERED: MORPHINE SULFATE INJ 2 MG/ml SYRG IV PRN ×2 (08:45)
[2024-07-06] MEDS ORDERED: MORPHINE SULFATE INJ 2 MG/ml SYRG IV ONE (08:45)
--- NOTE | 2024-07-06 09:19 | DVHINCON2 ---
Date of service: Jul 06, 2024 Referring Physician Aubree Reason for Consultation Jaundice Cirrhosis Hepatic encephalopathy History of Present Illness The patient is a 38-year-old female with a history of alcohol abuse, cirrhosis, jaundice, questionable history of liver cancer per chart, hypothyroidism, admitted with hepatic encephalopathy and jaundice. Patient is not a good historian. She drinks one bottle of Titos vodka daily. She denies any hematemesis, melena, hematochezia. She complains of epigastric abdominal pain and was given some morphine. Other history is not known. Patient was given a diagnosis of hepatic encephalopathy and started on medication. GI consultation was obtained for evaluation. Past Medical History As above Past Surgical History Denies any surgical history Family History: Alcoholism G8 FATHER Cerebrovascular accident (CVA) G8 MOTHER Family History No gastrointestinal diseases or malignancies Social History Vodka daily No tobacco Occasional marijuana use Allergies: Coded Allergies: Gabapentin (Verified Allergy, Unknown, 01/29/23) Potassium Chloride (Verified Adverse Reaction, Severe, 07/05/24) SEVERE ADVREAC TO IV FORM OF POTASSIUM Home Meds Reported Medications Naltrexone HCl (Naltrexone Hydrochloride) 50 Mg Tab, 50 MG PO, TAB 01/30/23 Home Meds Current Medications Medications (Trade) Dose Ordered Sig/Joan Route Start Time Stop Time Status Last Admin Dose Admin Famotidine (Pepcid Injection) 20 mg BID IV 07/06/24 10:00 Thiamine HCl 100 mg DAILY IV 07/06/24 10:00 Lactulose 30 ml Q6HR PO 07/06/24 00:00 07/06/24 05:46 Folic Acid 1 mg/ Dextrose 50.2 ml @ 200.8 mls/ hr DAILY INJ 07/06/24 10:00 Levothyroxine Sodium (Synthroid Tablet) 25 mcg QAM@0600 PO 07/06/24 06:00 07/06/24 05:46 Sertraline HCl (Zoloft) 100 mg DAILY PO 07/06/24 10:00 Ibuprofen (Motrin Tablet) 400 mg Q6HP PRN PO 07/06/24 00:00 07/06/24 05:48 Sodium Chloride 1,000 ml @ 60 mls/hr [id number] IV 07/06/24 00:00 07/06/24 01:11 Acetaminophen/ Hydrocodone Bitart ([place] 5/325MG Tab) 1 tab Q4HP PRN PO 07/06/24 00:00 07/06/24 06:56 Docusate Sodium (Colace Capsule) 100 mg BIDPRN PRN PO 07/06/24 00:00 Nitroglycerin (Ntrostat Sublingual) 0.4 mg Q5MINP PRN SL 07/06/24 00:00 Morphine Sulfate 2 mg Q30M PRN IV 07/06/24 00:00 Cancel Morphine Sulfate 2 mg Q6HPRN PRN IV 07/06/24 08:45 UNV Ondansetron HCl (Zofran) 4 mg Q6HPRN PRN IV 07/06/24 08:45 Morphine Sulfate 2 mg Q4HPRN PRN IV 07/06/24 09:00 Morphine Sulfate 2 mg Q30M PRN IV 07/06/24 09:00 Current Medications Current Medications Medications (Trade) Dose Ordered Sig/Joan Route PRN Reason Start Time Stop Time Status Last Admin Potassium Chloride 100 ml @ 50 mls/hr Q2H IV 07/05/24 22:30 07/05/24 22:33 DC Famotidine (Pepcid Injection) 20 mg BID IV 07/06/24 10:00 Thiamine HCl 100 mg DAILY IV 07/06/24 10:00 Lactulose 30 ml Q6HR PO 07/06/24 00:00 07/06/24 05:46 Folic Acid 1 mg/ Dextrose 50.2 ml @ 200.8 mls/ hr DAILY INJ 07/06/24 10:00 Levothyroxine Sodium (Synthroid Tablet) 25 mcg QAM@0600 PO 07/06/24 06:00 07/06/24 05:46 Sertraline HCl (Zoloft) 100 mg DAILY PO 07/06/24 10:00 Ibuprofen (Motrin Tablet) 400 mg Q6HP PRN PO PAIN SCALE 1-3 OR TEMP>100.4 07/06/24 00:00 07/06/24 05:48 Sodium Chloride 1,000 ml @ 60 mls/hr Q19T80P IV 07/06/24 00:00 07/06/24 01:11 Acetaminophen/ Hydrocodone Bitart ([place] 5/325MG Tab) 1 tab Q4HP PRN PO MODERATE PAIN (4-6 PAIN SCALE) 07/06/24 00:00 07/06/24 06:56 Ondansetron HCl (Zofran) 4 mg Q4HP PRN IV NAUSEA / VOMITING 07/06/24 00:00 07/06/24 08:56 DC 07/06/24 05:33 Docusate Sodium (Colace Capsule) 100 mg BIDPRN PRN PO FOR CONSTIPATION 07/06/24 00:00 Nitroglycerin (Ntrostat Sublingual) 0.4 mg Q5MINP PRN SL FOR CHEST PAIN 07/06/24 00:00 Morphine Sulfate 2 mg Q30M PRN IV FOR CHEST PAIN 07/06/24 00:00 Cancel Morphine Sulfate 2 mg Q6HPRN PRN IV SEVERE PAIN (7-10 PAIN SCALE) 07/06/24 08:45 UNV Ondansetron HCl (Zofran) 4 mg Q6HPRN PRN IV NAUSEA / VOMITING 07/06/24 08:45 Morphine Sulfate 2 mg Q4HPRN PRN IV SEVERE PAIN (7-10 PAIN SCALE) 07/06/24 09:00 Morphine Sulfate 2 mg Q30M PRN IV FOR CHEST PAIN 07/06/24 09:00 Review of Systems She has fevers, No weight loss No hearing changes or visual changes History of headache History of hepatic encephalopathy, no stroke or seizure Complains of abdominal pain Denies any chest pain or shortness of breath No history of anemia, chart states liver cancer question not seen on CT scan No history of diabetes she does have a history of hypothyroidism Mild coagulopathy no thrombocytopenia History of depression and anxiety Vital Signs Vital Signs Date Time Temp Pulse Resp B/P (MAP) Pulse Ox O2 Delivery O2 Flow Rate FiO2 07/06/24 08:20 107 07/06/24 08:00 98.0 16 100/61 (74) 94 98.0 07/06/24 07:20 Room Air* 0 21 Physical Exam General: Alert anxious female lying in bed no distress HEENT: NC/AT EOMI PERRLA O/P clear, scleral icterus is present Heart: Regular rate and rhythm Abdomen: Soft, distended, mild epigastric tenderness to palpation Lungs: Clear to auscultation bilaterally anterior Extremity: No clubbing cyanosis or edema Neuro: She has asterixis Skin: Spider angiomata and jaundice Labs/Diagnostic Data Labs Test 07/06/24 07:38 07/06/24 06:51 07/06/24 06:45 07/06/24 03:57 Range/Units Lactic Acid Level 3.8 *H 0.4-2.0 mmol/L POC Glucose 129 H 70-106 mg/dl Urine Color Dark-yellow Yellow Urine Clarity Clear Clear Urine pH 7.0 5.0-9.0 Urine Specific [place] > 1.050 H 1.001-1.035 Urine Protein 1+ H Negative Urine Ketones 1+ H Negative Urine Blood 2+ H Negative /uL Urine Nitrite Negative Negative Urine Bilirubin 3+ H Negative Urine Urobilinogen 8 H Negative mg/dL Urine Leukocyte Esterase Negative Negative /uL Urine RBC 11 0 - 4 /hpf Urine Microscopic WBC 5 0-5 /HPF Urine Squamous Epithelial Cells Few <5 /hpf Urine Bacteria Few H None Seen /hpf Urine Glucose Normal Normal mg/dL White Blood Count 5.5 4.4-10.8 10^3/uL Red Blood Count 2.85 L 4.0-5.20 10^6/uL Hemoglobin 9.0 L 12.2-16.2 g/dL Hematocrit 27.3 #L 36.0-46.0 % Mean Corpuscular Volume 95.8 80.0-100.0 fL Mean Corpuscular Hemoglobin 31.7 28.0-32.0 pg Mean Corpuscular Hemoglobin Concent 33.1 32.0-36.0 g/dL Red Cell Distribution Width 24.3 H 11.8-14.3 % Platelet Count 184 140-450 10^3/uL Mean Platelet Volume 7.2 6.9-10.8 fL Neutrophils (%) (Auto) 63.2 37.0-80.0 % Lymphocytes (%) (Auto) 25.4 10.0-50.0 % Monocytes (%) (Auto) 9.7 0.0-12.0 % Eosinophils (%) (Auto) 0.2 0.0-7.0 % Basophils (%) (Auto) 1.5 0.0-2.0 % Neutrophils # (Auto) 3.5 1.6-8.6 10 ^3/uL Lymphocytes # (Auto) 1.4 0.4-5.4 10 ^3/uL Monocytes # (Auto) 0.5 0-1.3 10 ^3/uL Eosinophils # (Auto) 0 0-0.8 10 ^3/uL Basophils # (Auto) 0.1 0-0.2 10 ^3/uL Nucleated Red Blood Cells 0.1 % Sodium Level 134 L 136-145 mmol/L Potassium Level 3.4 L 3.5-5.1 mmol/L Chloride Level 93 L 98-107 mmol/L Carbon Dioxide Level 22 20-31 mmol/L Anion Gap 19 H 5-15 Blood Urea Nitrogen 5 L 9-23 mg/dL Creatinine 0.48 L 0.550-1.02 mg/dL Glomerular Filtration Rate Calc 123 >90 mL/min BUN/Creatinine Ratio 10.4 10.0-20.0 Serum Glucose 61 L 74-106 mg/dL Calcium Level 8.6 L 8.7-10.4 mg/dL Total Bilirubin 13.4 H 0.2-1.0 mg/dL Aspartate Amino Transferase (AST) 363 H 13-40 U/L Alanine Aminotransferase (ALT) 63 H 7-40 U/L Alkaline Phosphatase 233 H 46-116 U/L Total Protein 6.2 5.7-8.2 g/dL Albumin 3.0 L 3.2-4.8 g/dL Test 07/05/24 19:46 Range/Units Prothrombin Time 11.9 H 9.3-11.8 sec Prothrombin Time INR 1.14 0.9-1.15 Ammonia 21 11-32 umol/L Lipase 25 12-53 U/L Thyroid Stimulating Hormone (TSH) 2.59 0.55-4.78 uIU/mL Plasma/Serum Blood Alcohol 193.0 H <10 mg/dL Assessment 1. Acute alcoholic hepatitis 2. Hepatic encephalopathy 3. Epigastric abdominal pain 4. Jaundice Problems(with codes): (1) Hepatic encephalopathy (2) Disorientation, unspecified (3) Alcohol use, unspecified with intoxication delirium (4) Elevated liver enzymes (5) End stage liver disease Plan/Recommendation 1. EtOH withdrawal precautions 2. Follow labs 3. Consider starting prednisone taper if the patient's enzymes or bilirubin worsens 4. Monitor platelet count and INR 5. IV fluids and electrolyte replacement, banana bag 6. Pain control with morphine at this time however if it worsens her encephalopathy or makes her constipated we will discontinue 7. No indication for EGD or colonoscopy at this time 8. I will be signing off to Dr. Esquivel Plan discussed with: Patient OSCAR KNOX MD Jul 06, 2024 09:19
[2024-07-06] MEDS: FOLIC ACID 1 MG in D5W 5% 50 ML INJ SCH (09:38)
[2024-07-06] MEDS: SERTRALINE HCL 50 MG TAB PO SCH (09:39)
[2024-07-06] MEDS: FAMOTIDINE (10MG/ML) 2ML VL IV SCH (09:42)
[2024-07-06] MEDS: THIAMINE 100mg/ml INJ (200mg/2ml VIAL) IV SCH (09:42)
[2024-07-06] MEDS ORDERED: MORPHINE SULFATE 4 MG/ML SYR/VIAL IV PRN (11:15)
[2024-07-06] MEDS: POTASSIUM CHLORIDE 40 MEQ, LIDOCAINE 1% (LOCAL ANESTH.) 4 ML in SODIUM CHL 0.9% 250 ML IV ONE (12:06)
[2024-07-06 12:15] VITALS: PULSE 100; RESP 17; O2SAT 99
[2024-07-06] MEDS: MORPHINE SULFATE 4 MG/ML SYR/VIAL IV PRN ×3 (12:30→18:41)
[2024-07-06 14:12] VITALS: BP 93/50; PULSE 92; RESP 18; TEMP 98.3; O2SAT 94
[2024-07-06 14:15] VITALS: BP 93/50; PULSE 86; PULSE 92; RESP 18; TEMP 98.3; O2SAT 94
[2024-07-06 16:38] VITALS: BP 132/115; PULSE 99; RESP 16; TEMP 98.1; O2SAT 97
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
[2024-07-06 20:00] VITALS: PULSE 102; PULSE 105; RESP 18; O2SAT 94
[2024-07-06 21:00] VITALS: BP 121/65; PULSE 102; RESP 18; TEMP 98.7; O2SAT 94
[2024-07-06 21:54] LABS: Amphetamine Screen, Urine Pos (NEGATIVE); Barbiturate Scree,Urine Neg (NEGATIVE)
[2024-07-06 21:55] LABS: Benzodiazephine Screen, Urine Neg (NEGATIVE); Cannabinoid Screen, Urine Neg (NEGATIVE); Cocaine Screen, Urine Neg (NEGATIVE); Opiate Scree,Urine Pos (NEGATIVE); Phencyclidine Screen, Urine Neg (NEGATIVE)
[2024-07-07] VITALS (8 sets, daily range): BP systolic 93–107; BP diastolic 57–69; PULSE 99–115; RESP 18–19; TEMP 98–98.5; O2SAT 94–98
[2024-07-07] MEDS: ONDANSETRON HCL 4 MG/2 ML VIAL IV PRN (05:15)
[2024-07-07 06:44] LABS: Lactic Acid w/Reflex 2.8 mmol/L (0.4-2.0)
[2024-07-07] MEDS ORDERED: LORazepam 2MG/ML-1ML VIAL IV PRN (07:45)
[2024-07-07 13:45] LABS: Basophils # (auto) 0.1 10 ^3/uL (0-0.2); Basophils % (auto) 2.4 % (0.0-2.0); Eosinophils # (auto) 0 10 ^3/uL (0-0.8); Eosinophils % (auto) 0.8 % (0.0-7.0); Hematocrit 25.2 % (36.0-46.0); Hemoglobin 8.4 g/dL (12.2-16.2); Lymphocytes # (auto) 0.8 10 ^3/uL (0.4-5.4); Lymphocytes % (auto) 20.7 % (10.0-50.0); Mean Corpuscular Hemoglobin 32.3 pg (28.0-32.0); Mean Corpuscular Hgb Conc. 33.2 g/dL (32.0-36.0); Mean Corpuscular Volume 97.3 fL (80.0-100.0); Monocytes # (auto) 0.4 10 ^3/uL (0-1.3); Monocytes % (auto) 9.9 % (0.0-12.0); Neutrophils # (auto) 2.4 10 ^3/uL (1.6-8.6); Neutrophils % (auto) 66.2 % (37.0-80.0); Nucleated Red Blood Cells % 0.2 %; Platelet Count (auto) 159 10^3/uL (140-450); Red Blood Cells 2.59 10^6/uL (4.0-5.20); Red Cell Distribution Width 24.1 % (11.8-14.3); White Blood Cell 3.7 10^3/uL (4.4-10.8)
[2024-07-07 13:55] LABS: Anion Gap 9 (5-15); Calcium 9.2 mg/dL (8.7-10.4); Carbon Dioxide 27 mmol/L (20-31); Glucose 86 mg/dL (74-106)
[2024-07-07 14:02] LABS: Alanine Aminotransferase 60 U/L (7-40); Albumin 2.9 g/dL (3.2-4.8); Alkaline Phosphatase 216 U/L (46-116); Aspartate Aminotransferase 267 U/L (13-40); Bilirubin, Total 14.1 mg/dL (0.2-1.0); Blood Urea Nitrogen 6 mg/dL (9-23); Chloride 98 mmol/L (98-107); Sodium 134 mmol/L (136-145); Total Protein 5.9 g/dL (5.7-8.2)
[2024-07-07] MEDS: PANTOPRAZOLE 40 MG/10 ML VIAL INJ IV ONE (14:11)
--- NOTE | 2024-07-07 16:35 | DVHPNRES ---
Progress Note Date Seen: Jul 07, 2024 Resident Creating Document: GERTRUDE OLVERA ZEYNEP Has the PT tested + for MRSA If YES, has PT been informed?: No Medical Necessity Reason Pt with a Central, PICC or Fol: No Subjective Review of Systems Patient seen and examined at the bedside. Patient is feeling better since admission but still complained of abdominal pain and per rectal fresh bleeding Patient reports: No new complaints, Feels better Changes from previous H/P or p: Changes Objective vital signs Vital Sign Date Time Temp Pulse Resp B/P (MAP) Pulse Ox O2 Delivery O2 Flow Rate FiO2 07/07/24 13:06 98.5 99 19 93/57 (69) 97 98.5 07/07/24 08:00 Nasal Cannula* 2 28 Total Intake and Output 07/06/24 07/06/24 07/07/24 15:00 23:00 07:00 Intake Total 600 ml 1400 ml Balance 600 ml 1400 ml medications Current Medications Medications Dose Ordered Sig/Joan Route Start Time Stop Time Status Last Admin Dose Admin Thiamine HCl 100 mg DAILY IV 07/06/24 10:00 07/07/24 08:55 100 MG Lactulose 30 ml Q6HR PO 07/06/24 00:00 07/07/24 11:34 30 ML Folic Acid 1 mg/ Dextrose 50.2 ml @ 200.8 mls/ hr DAILY INJ 07/06/24 10:00 07/07/24 09:59 200.8 MLS/HR Levothyroxine Sodium 25 mcg QAM@0600 PO 07/06/24 06:00 07/07/24 05:41 25 MCG Sertraline HCl 100 mg DAILY PO 07/06/24 10:00 07/07/24 08:55 100 MG Docusate Sodium 100 mg BIDPRN PRN PO 07/06/24 00:00 Nitroglycerin 0.4 mg Q5MINP PRN SL 07/06/24 00:00 Morphine Sulfate 2 mg Q30M PRN IV 07/06/24 00:00 Cancel Morphine Sulfate 2 mg Q6HPRN PRN IV 07/06/24 08:45 UNV Ondansetron HCl 4 mg Q6HPRN PRN IV 07/06/24 08:45 07/07/24 05:15 4 MG Morphine Sulfate 2 mg Q30M PRN IV 07/06/24 09:00 Sodium Chloride 1,000 ml @ 120 mls/hr Q8H20M IV 07/06/24 11:15 07/07/24 06:23 120 MLS/HR Morphine Sulfate 2 mg Q4HPRN PRN IV 07/06/24 15:30 07/07/24 11:40 2 MG Lorazepam 1 mg Q2HPRN PRN IV 07/07/24 07:45 Pantoprazole Sodium 40 mg DAILY IV 07/08/24 10:00 Examination General Appearance: Alert, Oriented X3, Cooperative, No acute distress HEENT: Icterus (blue sclera) Respiratory: Clear to auscultation, Normal air movement Cardiovascular: Regular rate, Normal S1, Normal S2, No murmurs, no chest wall tenderness Abdominal: Diffuse abdominal tenderness Extremities: No clubbing, No cyanosis, No edema, Normal pulses, No tenderness/swelling Skin: No rashes, No breakdown, No significant lesion Neuro: Normal gait, Normal speech, Strength at 5/5 X4 ext, Normal tone, Sensation intact, Cranial nerves 3-12 NL, Reflexes 2+ Psych/Mental Status: Mental status NL, Mood NL laboratory and microbiology Laboratory Tests 07/07/24 05:55 Test 07/07/24 05:55 Range/Units Serum Glucose 86 74-106 mg/dL Labs and/or images reviewed: Labs reviewed by me, Image(s) reviewed by me Problem List/Assessment/Plan Problem List/Assessment/Plan ? Hepatic encephalopathy Acute alcoholic hepatitis, Maddrey's Discriminant function 14.3, MELD's score: 18 points Acute abdominal pain, likely due to acute gastritis/cholelithiasis ? GI bleeding, unspecified location Cholelithiasis Alcohol use disorder Methamphetamine use disorder next Jaundice Obesity Hyponatremia Lactic acidosis Hypokalemia Hepatomegaly and considerable fatty infiltration of the liver. Hyperbilirubinemia Moderate protein malnutrition Hypothyroidism Depression * Blood alcohol level of 196 * CIWA score was 6 * CT abdominopelvic shows, hepatomegaly with hepatic steatosis, cholelithiasis and 3-4 mm right intrarenal calculus * Gallbladder ultrasound shows,Cholelithiasis without evidence of acute cholecystitis * Pocus: No intra-abdominal fluid Plan/Recommendation [facility] protocol, and injection Ativan p.r.n. Injection folic acid and thiamine Continue home meds, sertraline and levothyroxine GI consulted, recommended conservative management, and may start prednisolone in case of worsening liver enzymes Consulted surgery for cholelithiasis DIET: Clear liquid diet DVT PROPHYLAXIS: Due to possible GI bleeding, no anticoagulant indicated GI PROPHYLAXIS:: Protonix BOWEL REGIMEN: Lactulose CODE STATUS: Goal of care discussed for more than 18 minutes, full code DISPOSITION: Med/surge Patient's status and plan discussed with the patient. Case discussed with Dr. Nur. Plan discussed with: Patient, Other (RN) My Orders My Orders Orders - GERTRUDE OLVERA Procedure Category Date Status Time Lorazepam 2mg/Ml Inj PHA 07/07/24 In Process (Ativan Inj) 07:45 Etoh Withdrawal ROBBIE 07/07/24 In Process Assessment 07:45 Etoh Withdrawal ROBBIE 07/07/24 In Process Assessment 07:45 Stool Occult Blood LAB 07/07/24 Logged 10:44 * Surgical Consult CONS 07/07/24 Transmitted 13:19 Pantoprazole PHA 07/08/24 In Process (Protonix) 10:00 Complete Blood Count LAB 07/08/24 Verified 04:00 Comprehensive LAB 07/08/24 Verified Metabolic Panel 04:00 Date of Service: Jul 07, 2024 Billing Provider: JEWEL NUR MD Common Visit Codes: [id number] INP/OBS CARE(HIGH) GERTRUDE OLVERA Jul 07, 2024 16:35 JEWEL NUR MD Jul 08, 2024 09:19
[2024-07-07] MEDS: POTASSIUM CHLORIDE 40 MEQ, LIDOCAINE 1% (LOCAL ANESTH.) 4 ML in SODIUM CHL 0.9% 250 ML IV ONE (16:45)
[2024-07-07] MEDS: D5W/SOD CHLO 0.9% 1,000 ML IV SCH (16:45)
[2024-07-07] MEDS: POTASSIUM EFFERVESENT TAB 25 MEQ PO ONE (17:19)
[2024-07-07] MEDS: MAGNESIUM SULFATE 1GM/100ML 100 ML IV ONE (17:22)
[2024-07-07 21:54] LABS: Anion Gap 10 (5-15); Calcium 9.4 mg/dL (8.7-10.4); Carbon Dioxide 24 mmol/L (20-31); Chloride 98 mmol/L (98-107)
[2024-07-07 22:02] LABS: Alanine Aminotransferase 52 U/L (7-40); Albumin 2.9 g/dL (3.2-4.8); Alkaline Phosphatase 198 U/L (46-116); Aspartate Aminotransferase 209 U/L (13-40); BUN/Creatinine Ratio 8.5 (10.0-20.0); Bilirubin, Total 13.3 mg/dL (0.2-1.0); Blood Urea Nitrogen < 5 mg/dL (9-23); Glucose 135 mg/dL (74-106); Potassium 3.1 mmol/L (3.5-5.1); Sodium 132 mmol/L (136-145); Total Protein 6.1 g/dL (5.7-8.2)
[2024-07-08] VITALS (9 sets, daily range): BP systolic 93–102; BP diastolic 53–65; PULSE 91–107; RESP 17–19; TEMP 97.3–98.7; O2SAT 94–98
[2024-07-08 06:55] LABS: Basophils # (auto) 0 10 ^3/uL (0-0.2); Eosinophils # (auto) 0 10 ^3/uL (0-0.8); Eosinophils % (auto) 0.7 % (0.0-7.0); Hemoglobin 8.2 g/dL (12.2-16.2); Lymphocytes # (auto) 0.9 10 ^3/uL (0.4-5.4); Mean Corpuscular Hemoglobin 32.9 pg (28.0-32.0); Mean Corpuscular Hgb Conc. 33.6 g/dL (32.0-36.0); Monocytes # (auto) 0.4 10 ^3/uL (0-1.3); Neutrophils # (auto) 2.7 10 ^3/uL (1.6-8.6); White Blood Cell 4.1 10^3/uL (4.4-10.8)
[2024-07-08 06:58] LABS: Hematocrit 24.3 % (36.0-46.0); Lymphocytes % (auto) 21.4 % (10.0-50.0); Mean Corpuscular Volume 98.1 fL (80.0-100.0); Monocytes % (auto) 10.8 % (0.0-12.0); Neutrophils % (auto) 66.1 % (37.0-80.0); Nucleated Red Blood Cells % 0.4 %; Platelet Count (auto) 180 10^3/uL (140-450); Red Blood Cells 2.48 10^6/uL (4.0-5.20)
[2024-07-08 06:59] LABS: Red Cell Distribution Width 24.2 % (11.8-14.3)
[2024-07-08 07:13] LABS: Anion Gap 11 (5-15); Calcium 8.9 mg/dL (8.7-10.4); Carbon Dioxide 24 mmol/L (20-31); Glucose 99 mg/dL (74-106)
[2024-07-08 07:28] LABS: Alanine Aminotransferase 48 U/L (7-40); Albumin 2.9 g/dL (3.2-4.8); Alkaline Phosphatase 189 U/L (46-116); Aspartate Aminotransferase 192 U/L (13-40); BUN/Creatinine Ratio 9.4 (10.0-20.0); Blood Urea Nitrogen < 5 mg/dL (9-23); Chloride 97 mmol/L (98-107); Potassium 2.8 mmol/L (3.5-5.1); Sodium 132 mmol/L (136-145); Total Protein 5.9 g/dL (5.7-8.2)
[2024-07-08] MEDS: POTASSIUM PHOSPHATE 44 MEQ in D5W 5% 250 ML IV ONE (07:54)
[2024-07-08] MEDS: POTASSIUM EFFERVESENT TAB 25 MEQ PO ONE (08:44)
--- NOTE | 2024-07-08 09:58 | DVHINCON2 ---
Consultation - Surgical Date Seen: Jul 08, 2024 Referring Physician Referring Physician Dr. Ziegler Reason for Consultation abd pain History of Present Illness History of Present Illness 38f w etoh cirrhosis admitted hepatic encephalopathy and vague abd sxs Past Medical/Surgical History Past Medical/Surgical History etoh abuse, cirrhosis w portal htn, etoh dependance Family and Social History Family and Social History daily etoh, no drugs tob Allergies and medications Allergies: Coded Allergies: Gabapentin (Verified Allergy, Unknown, 01/29/23) Potassium Chloride (Verified Adverse Reaction, Severe, 07/05/24) SEVERE ADVREAC TO IV FORM OF POTASSIUM Home Meds Reported Medications Naltrexone HCl (Naltrexone Hydrochloride) 50 Mg Tab, 50 MG PO, TAB 01/30/23 Review of systems Review of Systems: HEENT:Normal, CVS:Normal, RESPIRATORY:Normal, GI:Abnormal (nausea, vomitting, pain, jaundice), :Normal, MSK:Normal, NEURO:Abnormal (ams, substance abuse) Examination Vital signs Vital Signs Date Time Temp Pulse Resp B/P (MAP) Pulse Ox O2 Delivery O2 Flow Rate FiO2 07/08/24 08:47 96 18 102/58 07/08/24 05:34 96 07/08/24 05:00 98.7 98.7 07/07/24 20:00 Room Air* 0 21 Medications Current Medications Medications (Trade) Dose Ordered Sig/Joan Route PRN Reason Start Time Stop Time Status Last Admin Pantoprazole Sodium (Protonix) 40 mg DAILY IV 07/08/24 10:00 07/08/24 06:40 DC Dextrose/Sodium Chloride 1,000 ml @ 150 mls/hr Q6H40M IV 07/07/24 16:45 07/08/24 02:00 DC 07/07/24 16:45 Laboratory Labs Test 07/08/24 05:21 07/07/24 19:43 07/07/24 08:59 07/07/24 05:55 Range/Units White Blood Count 4.1 L 4.4-10.8 10^3/uL Red Blood Count 2.48 L 4.0-5.20 10^6/uL Hemoglobin 8.2 L 12.2-16.2 g/dL Hematocrit 24.3 L 36.0-46.0 % Mean Corpuscular Volume 98.1 80.0-100.0 fL Mean Corpuscular Hemoglobin 32.9 H 28.0-32.0 pg Mean Corpuscular Hemoglobin Concent 33.6 32.0-36.0 g/dL Red Cell Distribution Width 24.2 H 11.8-14.3 % Platelet Count 180 140-450 10^3/uL Mean Platelet Volume 7.4 6.9-10.8 fL Neutrophils (%) (Auto) 66.1 37.0-80.0 % Lymphocytes (%) (Auto) 21.4 10.0-50.0 % Monocytes (%) (Auto) 10.8 0.0-12.0 % Eosinophils (%) (Auto) 0.7 0.0-7.0 % Basophils (%) (Auto) 1.0 0.0-2.0 % Neutrophils # (Auto) 2.7 1.6-8.6 10 ^3/uL Lymphocytes # (Auto) 0.9 0.4-5.4 10 ^3/uL Monocytes # (Auto) 0.4 0-1.3 10 ^3/uL Eosinophils # (Auto) 0 0-0.8 10 ^3/uL Basophils # (Auto) 0 0-0.2 10 ^3/uL Nucleated Red Blood Cells 0.4 % Sodium Level 132 L 136-145 mmol/L Potassium Level 2.8 L 3.5-5.1 mmol/L Chloride Level 97 L 98-107 mmol/L Carbon Dioxide Level 24 20-31 mmol/L Anion Gap 11 5-15 Blood Urea Nitrogen < 5 L 9-23 mg/dL Creatinine 0.53 L 0.550-1.02 mg/dL Glomerular Filtration Rate Calc 121 >90 mL/min BUN/Creatinine Ratio 9.4 L 10.0-20.0 Serum Glucose 99 74-106 mg/dL Calcium Level 8.9 8.7-10.4 mg/dL Total Bilirubin 13.0 H 0.2-1.0 mg/dL Aspartate Amino Transferase (AST) 192 H 13-40 U/L Alanine Aminotransferase (ALT) 48 H 7-40 U/L Alkaline Phosphatase 189 H 46-116 U/L Total Protein 5.9 5.7-8.2 g/dL Albumin 2.9 L 3.2-4.8 g/dL Stool Occult Blood Negative Negative Stool Occult Blood Sample #3 Negative Lactic Acid Level 2.8 *H 0.4-2.0 mmol/L Phosphorus Level 1.8 L 2.4-5.1 mg/dL Ammonia 43 H 11-32 umol/L Test 07/06/24 06:51 07/06/24 06:45 07/06/24 03:57 07/05/24 19:46 Range/Units POC Glucose 129 H 70-106 mg/dl Urine Color Dark-yellow Yellow Urine Clarity Clear Clear Urine pH 7.0 5.0-9.0 Urine Specific [place] > 1.050 H 1.001-1.035 Urine Protein 1+ H Negative Urine Ketones 1+ H Negative Urine Blood 2+ H Negative /uL Urine Nitrite Negative Negative Urine Bilirubin 3+ H Negative Urine Urobilinogen 8 H Negative mg/dL Urine Leukocyte Esterase Negative Negative /uL Urine RBC 11 0 - 4 /hpf Urine Microscopic WBC 5 0-5 /HPF Urine Squamous Epithelial Cells Few <5 /hpf Urine Bacteria Few H None Seen /hpf Urine Glucose Normal Normal mg/dL Urine Opiates Screen Pos NEGATIVE Urine Fentanyl Screen Neg NEGATIVE Urine Barbiturates Screen Neg NEGATIVE Urine Phencyclidine Screen Neg NEGATIVE Urine Amphetamines Screen Pos NEGATIVE Urine Benzodiazepines Screen Neg NEGATIVE Urine Cocaine Screen Neg NEGATIVE Urine Cannabinoids Screen Neg NEGATIVE Magnesium Level 1.7 1.6-2.6 mg/dL Prothrombin Time 11.9 H 9.3-11.8 sec Prothrombin Time INR 1.14 0.9-1.15 Lipase 25 12-53 U/L Thyroid Stimulating Hormone (TSH) 2.59 0.55-4.78 uIU/mL Plasma/Serum Blood Alcohol 193.0 H <10 mg/dL Examination: HEENT:Abnormal (icteris), NECK:Normal, LUNGS:Normal, CVS:Normal, ABDOMEN:Normal (s, nd, nt, no hernias), MSK:Normal, SKIN:Abnormal (jaundice), NEURO:Abnormal Problem List/Assessment/Plan Problems: (1) Altered mental status (2) End stage liver disease (3) Hepatic encephalopathy (4) Alcohol intoxication (5) Disorientation, unspecified (6) Elevated liver enzymes (7) Alcohol use, unspecified with intoxication delirium (8) Jaundice (9) Alcoholic steatohepatitis (10) Electrolyte imbalance Assessment and Plan 38F w advanced EtOH cirrhosis, ongoing daily EtOH abuse (1 bottle of vodka daily) admitted w hepatic encephalopathy, vague epigastric abd pain and intermittent episodes of hematochezia vs melena WBC 3.7, Tb 14.1, AST/ALT 192/48, ALP 189, Alb 2.9 RUQ US: cholelithiasis without perichole fluid, no GB wall thickening, no CBD dilation (CBD 3.5mm) CT abd: cholelithiasis w/o evidence of cholecystitis, cirrhotic liver, no ascites Child Class B --> 30% perioperative abdominal surgery mortality risk MELD-Na Score 22 --> 19.6% 3mo mortality risk high risk surgical patient with major perioperative morbidity and mortality risk no clinical or radiological evidence suggestive of cholecystitis if concerns that sxs may be related to biliary colic/symptomatic cholelithiasis recommend conservative management w dietary modifications ongoing extensive etoh abuse counseling offered, etoh rehab resources prior to d/c if pt interested not transplant canidate 2/2 ongoing current etoh abuse monitor for EtOH w/drawl, CIWA Plan discussed with Plan discussed with: Patient Visit Coding Surgery Date of Service if different f: Jul 08, 2024 Billing Provider: JANELLE DANIELS MD Surgery Visit Codes: 02586 - INP CONSULT <55 MIN JANELLE DANIELS MD Jul 08, 2024 09:58
[2024-07-08] MEDS ORDERED: PANTOPRAZOLE 40 MG/10 ML VIAL INJ IV SCH (10:00)
--- NOTE | 2024-07-08 15:32 | DVHPNRES ---
Progress Note Date Seen: Jul 08, 2024 Resident Creating Document: GERTRUDE OLVERA ZEYNEP Has the PT tested + for MRSA If YES, has PT been informed?: No Medical Necessity Reason Pt with a Central, PICC or Fol: No Subjective Review of Systems Patient seen and examined at the bedside. Patient is still complaining of abdominal pain. Objective vital signs Vital Sign Date Time Temp Pulse Resp B/P (MAP) Pulse Ox O2 Delivery O2 Flow Rate FiO2 07/08/24 14:05 98 16 101/57 07/08/24 13:00 97.3 97 97.3 07/08/24 08:00 Room Air* 0 21 Total Intake and Output 07/07/24 07/07/24 07/08/24 15:00 23:00 07:00 Intake Total 1000 ml 1500 ml Balance 1000 ml 1500 ml medications Current Medications Medications Dose Ordered Sig/Joan Route Start Time Stop Time Status Last Admin Dose Admin Thiamine HCl 100 mg DAILY IV 07/06/24 10:00 07/08/24 10:10 100 MG Lactulose 30 ml Q6HR PO 07/06/24 00:00 07/08/24 14:00 30 ML Folic Acid 1 mg/ Dextrose 50.2 ml @ 200.8 mls/ hr DAILY INJ 07/06/24 10:00 07/08/24 10:09 200.8 MLS/HR Levothyroxine Sodium 25 mcg QAM@0600 PO 07/06/24 06:00 07/08/24 05:31 25 MCG Sertraline HCl 100 mg DAILY PO 07/06/24 10:00 07/08/24 10:10 100 MG Nitroglycerin 0.4 mg Q5MINP PRN SL 07/06/24 00:00 Morphine Sulfate 2 mg Q30M PRN IV 07/06/24 00:00 Cancel Morphine Sulfate 2 mg Q6HPRN PRN IV 07/06/24 08:45 UNV Ondansetron HCl 4 mg Q6HPRN PRN IV 07/06/24 08:45 07/08/24 14:00 4 MG Morphine Sulfate 2 mg Q30M PRN IV 07/06/24 09:00 Morphine Sulfate 2 mg Q4HPRN PRN IV 07/06/24 15:30 07/08/24 14:05 2 MG Lorazepam 1 mg Q2HPRN PRN IV 07/07/24 07:45 Examination General Appearance: Alert, Oriented X3, Cooperative, No acute distress HEENT: Icterus (blue sclera) Respiratory: Clear to auscultation, Normal air movement Cardiovascular: Regular rate, Normal S1, Normal S2, No murmurs, no chest wall tenderness Abdominal: Diffuse abdominal tenderness Extremities: No clubbing, No cyanosis, No edema, Normal pulses, No tenderness/swelling Skin: No rashes, No breakdown, No significant lesion Neuro: Normal gait, Normal speech, Strength at 5/5 X4 ext, Normal tone, Sensation intact, Cranial nerves 3-12 NL, Reflexes 2+ Psych/Mental Status: Mental status NL, Mood NL laboratory and microbiology Laboratory Tests 07/08/24 05:21 Test 07/08/24 05:21 Range/Units Serum Glucose 99 74-106 mg/dL Labs and/or images reviewed: Labs reviewed by me, Image(s) reviewed by me Problem List/Assessment/Plan Problem List/Assessment/Plan ? Hepatic encephalopathy Acute alcoholic hepatitis, Maddrey's Discriminant function 14.3, MELD's score: 18 points Acute abdominal pain, likely due to acute gastritis/cholelithiasis ? GI bleeding, unspecified location Cholelithiasis Alcohol use disorder Methamphetamine use disorder next Jaundice Obesity Hyponatremia Lactic acidosis Hypokalemia Hepatomegaly and considerable fatty infiltration of the liver. Hyperbilirubinemia Moderate protein malnutrition Hypothyroidism Depression * Blood alcohol level of 196 * CIWA score was 6 * CT abdominopelvic shows, hepatomegaly with hepatic steatosis, cholelithiasis and 3-4 mm right intrarenal calculus * Gallbladder ultrasound shows,Cholelithiasis without evidence of acute cholecystitis * Pocus: No intra-abdominal fluid Plan/Recommendation [facility] protocol, and injection Ativan p.r.n. Injection folic acid and thiamine Continue home meds, sertraline and levothyroxine GI consulted, recommended conservative management, and may start prednisolone in case of worsening liver enzymes Consulted surgery, recommended medical management and considering the patient's high-risk clinical status DIET: Clear liquid diet DVT PROPHYLAXIS: Due to possible GI bleeding, no anticoagulant indicated GI PROPHYLAXIS:: Protonix BOWEL REGIMEN: Lactulose CODE STATUS: Goal of care discussed for more than 18 minutes, full code DISPOSITION: Med/surge Patient's status and plan discussed with the patient. Case discussed with Dr. Nur. Plan discussed with: Patient, Other (RN) My Orders My Orders Orders - GERTRUDE OLVERA RESYUDITH Procedure Category Date Status Time Communication Order ORDERS 07/08/24 Transmitted 06:38 Regular Diet DIET 07/08/24 Transmitted Breakfast * [employer] Tech CONS 07/08/24 Transmitted Consult Date of Service: Jul 08, 2024 Billing Provider: JEWEL NUR MD Common Visit Codes: [id number] INP/OBS CARE(HIGH) GERTRUDE OLVERA RESDIENT Jul 08, 2024 15:32 JEWEL NUR MD Jul 09, 2024 11:12
--- NOTE | 2024-07-08 22:10 | DVHPN2 ---
Progress Note - Dictate Date Seen: Jul 08, 2024 Has the PT tested + for MRSA If YES, has PT been informed?: No Medical Necessity Reason Pt with a Central, PICC or Fol: No Subjective No new complaints Patient is sleeping comfortably No nausea vomiting or abdominal pain vital signs Vital Sign Date Time Temp Pulse Resp B/P (MAP) Pulse Ox O2 Delivery O2 Flow Rate FiO2 07/08/24 21:00 98.3 107 18 100/63 (75) 96 98.3 07/08/24 20:00 Room Air* 0 21 Total Intake and Output 07/07/24 07/07/24 07/08/24 15:00 23:00 07:00 Intake Total 1000 ml 1500 ml Balance 1000 ml 1500 ml medications Current Medications Medications Dose Ordered Sig/Joan Route Start Time Stop Time Status Last Admin Dose Admin Thiamine HCl 100 mg DAILY IV 07/06/24 10:00 07/08/24 10:10 100 MG Lactulose 30 ml Q6HR PO 07/06/24 00:00 07/08/24 18:11 30 ML Folic Acid 1 mg/ Dextrose 50.2 ml @ 200.8 mls/ hr DAILY INJ 07/06/24 10:00 07/08/24 10:09 200.8 MLS/HR Levothyroxine Sodium 25 mcg QAM@0600 PO 07/06/24 06:00 07/08/24 05:31 25 MCG Sertraline HCl 100 mg DAILY PO 07/06/24 10:00 07/08/24 10:10 100 MG Nitroglycerin 0.4 mg Q5MINP PRN SL 07/06/24 00:00 Morphine Sulfate 2 mg Q30M PRN IV 07/06/24 00:00 Cancel Morphine Sulfate 2 mg Q6HPRN PRN IV 07/06/24 08:45 UNV Ondansetron HCl 4 mg Q6HPRN PRN IV 07/06/24 08:45 07/08/24 14:00 4 MG Morphine Sulfate 2 mg Q30M PRN IV 07/06/24 09:00 Morphine Sulfate 2 mg Q4HPRN PRN IV 07/06/24 15:30 07/08/24 18:29 2 MG Lorazepam 1 mg Q2HPRN PRN IV 07/07/24 07:45 objective General: Jaundiced lady lying in bed no distress HEENT: NC/AT EOMI PERRLA O/P clear, scleral icterus is present Heart: Regular rate and rhythm Abdomen: Soft, distended, mild epigastric tenderness to palpation Lungs: Clear to auscultation bilaterally anterior Extremity: No clubbing cyanosis or edema Skin: Spider angiomata and jaundice laboratory and microbiology Laboratory Tests 07/08/24 05:21 Test 07/08/24 05:21 Range/Units Serum Glucose 99 74-106 mg/dL Problems(with codes): (1) Alcohol use, unspecified with intoxication delirium (2) Elevated liver enzymes (3) Disorientation, unspecified (4) Alcohol intoxication (5) Hepatic encephalopathy (6) End stage liver disease (7) Jaundice (8) Alcoholic steatohepatitis Prognosis Assessment plan Patient is liver enzymes are starting to trend downwards [facility] suggestive of good prognosis, patient may not need steroids at this time Continue supportive care monitor labs advance diet physical therapy inpatient services rn consult for referral to alcohol rehab Plan discussed with: Patient KARTHIK DURAND MD Jul 08, 2024 22:10
[2024-07-09 01:00] VITALS: BP 105/67; PULSE 112; RESP 18; TEMP 98.3; O2SAT 95
[2024-07-09 05:00] VITALS: BP 103/64; PULSE 104; RESP 18; TEMP 98.2; O2SAT 95
[2024-07-09 08:00] VITALS: PULSE 101; RESP 18; O2SAT 94
[2024-07-09 09:00] VITALS: BP 98/60; PULSE 92; RESP 17; TEMP 97.3; O2SAT 95
[2024-07-09] MEDS ORDERED: LACT10SO3 PO (10:39)
[2024-07-09] MEDS ORDERED: IBUP1TAB4 PO (10:39)
[2024-07-09] MEDS ORDERED: FOLI-119 PO (10:39)
[2024-07-09] MEDS ORDERED: LEVO25TA6 PO (10:39)
[2024-07-09] MEDS ORDERED: SERT25TA28 PO (10:39)
[2024-07-09] MEDS ORDERED: OXYC-998 PO (10:41)
--- NOTE | 2024-07-09 10:48 | DVHDSRES ---
Discharge Summary Date of Admission Resident Creating Document: GERTRUDE OLVERA RESDIENT July 05, 2024 at 23:52 Date of Discharge: Jul 09, 2024 Admitting Diagnosis ? Hepatic encephalopathy Acute alcoholic hepatitis Labs/Diagnostic Data: Laboratory Results Test 07/09/24 09:28 07/08/24 05:21 07/07/24 19:43 07/07/24 08:59 Potassium Level 3.2 mmol/L (3.5-5.1) White Blood Count 4.1 10^3/uL (4.4-10.8) Red Blood Count 2.48 10^6/uL (4.0-5.20) Hemoglobin 8.2 g/dL (12.2-16.2) Hematocrit 24.3 % (36.0-46.0) Mean Corpuscular Volume 98.1 fL (80.0-100.0) Mean Corpuscular Hemoglobin 32.9 pg (28.0-32.0) Mean Corpuscular Hemoglobin Concent 33.6 g/dL (32.0-36.0) Red Cell Distribution Width 24.2 % (11.8-14.3) Platelet Count 180 10^3/uL (140-450) Mean Platelet Volume 7.4 fL (6.9-10.8) Neutrophils (%) (Auto) 66.1 % (37.0-80.0) Lymphocytes (%) (Auto) 21.4 % (10.0-50.0) Monocytes (%) (Auto) 10.8 % (0.0-12.0) Eosinophils (%) (Auto) 0.7 % (0.0-7.0) Basophils (%) (Auto) 1.0 % (0.0-2.0) Neutrophils # (Auto) 2.7 10 ^3/uL (1.6-8.6) Lymphocytes # (Auto) 0.9 10 ^3/uL (0.4-5.4) Monocytes # (Auto) 0.4 10 ^3/uL (0-1.3) Eosinophils # (Auto) 0 10 ^3/uL (0-0.8) Basophils # (Auto) 0 10 ^3/uL (0-0.2) Nucleated Red Blood Cells 0.4 % Sodium Level 132 mmol/L (136-145) Chloride Level 97 mmol/L (98-107) Carbon Dioxide Level 24 mmol/L (20-31) Anion Gap 11 (5-15) Blood Urea Nitrogen < 5 mg/dL (9-23) Creatinine 0.53 mg/dL (0.550-1.02) Glomerular Filtration Rate Calc 121 mL/min (>90) BUN/Creatinine Ratio 9.4 (10.0-20.0) Serum Glucose 99 mg/dL (74-106) Calcium Level 8.9 mg/dL (8.7-10.4) Total Bilirubin 13.0 mg/dL (0.2-1.0) Aspartate Amino Transferase (AST) 192 U/L (13-40) Alanine Aminotransferase (ALT) 48 U/L (7-40) Alkaline Phosphatase 189 U/L (46-116) Total Protein 5.9 g/dL (5.7-8.2) Albumin 2.9 g/dL (3.2-4.8) Stool Occult Blood Negative (Negative) Stool Occult Blood Sample #3 (Negative) Lactic Acid Level 2.8 mmol/L (0.4-2.0) Test 07/07/24 05:55 07/06/24 06:51 07/06/24 06:45 07/06/24 03:57 Phosphorus Level 1.8 mg/dL (2.4-5.1) Ammonia 43 umol/L (11-32) POC Glucose 129 mg/dl (70-106) Urine Color Dark-yellow (Yellow) Urine Clarity Clear (Clear) Urine pH 7.0 (5.0-9.0) Urine Specific [place] > 1.050 (1.001-1.035) Urine Protein 1+ (Negative) Urine Ketones 1+ (Negative) Urine Blood 2+ /uL (Negative) Urine Nitrite Negative (Negative) Urine Bilirubin 3+ (Negative) Urine Urobilinogen 8 mg/dL (Negative) Urine Leukocyte Esterase Negative /uL (Negative) Urine RBC 11 /hpf (0 - 4) Urine Microscopic WBC 5 /HPF (0-5) Urine Squamous Epithelial Cells Few /hpf (<5) Urine Bacteria Few /hpf (None Seen) Urine Glucose Normal mg/dL (Normal) Urine Opiates Screen Pos (NEGATIVE) Urine Fentanyl Screen Neg (NEGATIVE) Urine Barbiturates Screen Neg (NEGATIVE) Urine Phencyclidine Screen Neg (NEGATIVE) Urine Amphetamines Screen Pos (NEGATIVE) Urine Benzodiazepines Screen Neg (NEGATIVE) Urine Cocaine Screen Neg (NEGATIVE) Urine Cannabinoids Screen Neg (NEGATIVE) Magnesium Level 1.7 mg/dL (1.6-2.6) Test 07/05/24 19:46 Prothrombin Time 11.9 sec (9.3-11.8) Prothrombin Time INR 1.14 (0.9-1.15) Lipase 25 U/L (12-53) Thyroid Stimulating Hormone (TSH) 2.59 uIU/mL (0.55-4.78) Plasma/Serum Blood Alcohol 193.0 mg/dL (<10) Other Laboratory Tests 07/09/24 09:28 07/08/24 05:21 Brief Hx & Hospital Course: 38-year-old female with past medical history of alcohol use disorder, hypothyroidism, and cirrhosislikely secondary to chronic alcohol usewas admitted with jaundice, confusion, and vague epigastric abdominal pain. She was noted to be a poor historian and reported drinking one bottle of vodka daily. Labs revealed elevated liver enzymes (AST 192, ALT 48, ALP 189), INR 1.14, ammonia 21, T. bili 14.1, albumin 2.9. MELD-Na was 22, Child-Verdugo Class B. Serum ethanol was markedly elevated at 193. Imaging showed hepatomegaly with hepatic steatosis and cholelithiasis without signs of acute cholecystitis or intra-abdominal fluid. Her mental status was attributed to hepatic encephalopathy and possibly alcohol intoxication. She was started on lactulose and supportive measures (banana bag, thiamine, folic acid). No EGD or colonoscopy was deemed necessary. Surgery was consulted and stated due to high risk she is not candidate for any surgeries. Pain was managed conservatively with morphine and discontinued early due to concern for worsening encephalopathy. CIWA score improved since admission, now stable, more than 5 days of last drink, low risk of DT. The patient remained hemodynamically stable, and her hepatic encephalopathy improved during admission. Discharge Medications: Lactulose 30 mL PO Q6H PRN for encephalopathy Folic acid, thiamine Levothyroxine and sertraline resumed as home medications Follow-Up Appointments: GI outpatient follow-up with Dr. Esquivel Primary care provider for cirrhosis management and support resources Consults/Reason for consult GI due to alcohol hepatitis Surgery due to cholelithiasis Condition at Discharge: Poor Final Diagnosis/Problems List ? Hepatic encephalopathy Acute alcoholic hepatitis, Maddrey's Discriminant function 14.3, MELD's score: 18 points Acute abdominal pain, likely due to acute gastritis/cholelithiasis ? GI bleeding Cholelithiasis Alcohol use disorder Methamphetamine use disorder next Jaundice Obesity Hyponatremia Lactic acidosis Hypokalemia Hepatomegaly and considerable fatty infiltration of the liver. Hyperbilirubinemia Moderate protein malnutrition Hypothyroidism Depression Discharge Disposition: Home Discharge Instruct/Medications Diet: See Comment Diet comment: hepatic diet : lean meat, whole grains, low sodium Activity: Light activity Follow Up/Referral: id clinic Medications: see prescription Discharge Statement: "Patient was advised to return to the ER or call 911 if any headaches, dizziness, shortness of breath, chest pain, abdominal pain, bleeding, fevers, or worsening of medical condition. Patient was counseled about treatment plan, medications, possible side effects, patientverbalized understanding. All questions were answered to the best of my ability. This discharge took greater then 30 minutes in planning, reviewing documentation, counseling the patient, and discussing with other team members." ASSESSMENT ASSESSMENT Assessment ? Hepatic encephalopathy Acute alcoholic hepatitis, Maddrey's Discriminant function 14.3, MELD's score: 18 points Acute abdominal pain, likely due to acute gastritis/cholelithiasis ? GI bleeding, unspecified location Cholelithiasis Alcohol use disorder Methamphetamine use disorder next Jaundice Obesity Hyponatremia Lactic acidosis Hypokalemia Hepatomegaly and considerable fatty infiltration of the liver. Hyperbilirubinemia Moderate protein malnutrition Hypothyroidism Depression Date of Service: Jul 09, 2024 Billing Provider: JEWEL NUR MD Common Visit Codes: [id number] DISCH DAY >30min BILL ALBARADO RESIDENT Jul 09, 2024 10:48 JEWEL NUR MD Jul 10, 2024 13:46
[2024-07-09 11:18] VITALS: TEMP 36.3
[2024-07-09 12:00] VITALS: BP 104/63; PULSE 94; RESP 18
--- NOTE | 2024-07-09 14:05 | DVHPN2 ---
Progress Note - Dictate Date Seen: Jul 09, 2024 Has the PT tested + for MRSA If YES, has PT been informed?: No Medical Necessity Reason Pt with a Central, PICC or Fol: No Subjective No new complaints Rating soft diet No nausea vomiting or GI bleeding Liver enzymes are trending down vital signs Vital Sign Date Time Temp Pulse Resp B/P (MAP) Pulse Ox O2 Delivery O2 Flow Rate FiO2 07/09/24 12:00 94 18 104/63 07/09/24 11:18 36.3 07/09/24 09:00 95 07/09/24 08:00 Room Air* 0 21 Total Intake and Output 07/08/24 07/08/24 07/09/24 15:00 23:00 07:00 Intake Total 533 ml 320 ml Balance 533 ml 320 ml medications Current Medications Medications Dose Ordered Sig/Joan Route Start Time Stop Time Status Last Admin Dose Admin Thiamine HCl 100 mg DAILY IV 07/06/24 10:00 07/09/24 10:12 100 MG Lactulose 30 ml Q6HR PO 07/06/24 00:00 07/09/24 05:39 30 ML Levothyroxine Sodium 25 mcg QAM@0600 PO 07/06/24 06:00 07/09/24 05:39 25 MCG Sertraline HCl 100 mg DAILY PO 07/06/24 10:00 07/09/24 10:10 100 MG Nitroglycerin 0.4 mg Q5MINP PRN SL 07/06/24 00:00 Morphine Sulfate 2 mg Q30M PRN IV 07/06/24 00:00 Cancel Morphine Sulfate 2 mg Q6HPRN PRN IV 07/06/24 08:45 UNV Ondansetron HCl 4 mg Q6HPRN PRN IV 07/06/24 08:45 07/09/24 11:02 4 MG Morphine Sulfate 2 mg Q30M PRN IV 07/06/24 09:00 Morphine Sulfate 2 mg Q4HPRN PRN IV 07/06/24 15:30 07/09/24 11:05 2 MG Lorazepam 1 mg Q2HPRN PRN IV 07/07/24 07:45 Folic Acid 1 mg DAILY PO 07/10/24 10:00 objective General: Jaundiced lady lying in bed no distress HEENT: NC/AT EOMI PERRLA O/P clear, scleral icterus is present Heart: Regular rate and rhythm Abdomen: Soft, distended, mild epigastric tenderness to palpation Lungs: Clear to auscultation bilaterally anterior Extremity: No clubbing cyanosis or edema Skin: Spider angiomata and jaundice laboratory and microbiology Laboratory Tests 07/09/24 09:28 07/08/24 05:21 Test 07/08/24 05:21 Range/Units Serum Glucose 99 74-106 mg/dL Problems(with codes): (1) Alcoholic steatohepatitis (2) Jaundice (3) Elevated liver enzymes (4) Disorientation, unspecified (5) Alcohol intoxication (6) Hepatic encephalopathy (7) Cholelithiasis Prognosis Plan Discharge planning is in progress Patient has been advised complete abstinence from alcohol Outpatient follow up in discharge clinic in one week Outpatient follow up with me in 2-4 weeks for ongoing management and observation of chronic liver disease Plan discussed with: Other (Nurse) KARTHIK DURAND MD Jul 09, 2024 14:05
[2024-07-09] MEDS: POTASSIUM CHL 20 Meq TABLET PO ONE (14:14)
[2024-07-10] MEDS ORDERED: FOLIC ACID 1 MG TAB PO SCH (10:00)
== END 2024-07-09 16:04 | disposition home or self-care (01) ==
LOC: EDBD 19:24 → EEVIPCON 19:24 → ER 19:24 → OVERFLOW 23:52 → TELE-CENTR 07-06 13:21
PROVIDERS: ADMIT Student in an Organized Health Care Education/Training Program; ATTEND Emergency Medicine
DX: K80.20 Calculus of gallbladder without cholecystitis without obstruction (principal); K76.82 Hepatic encephalopathy; E87.20 Acidosis, unspecified; K72.10 Chronic hepatic failure without coma; K29.01 Acute gastritis with bleeding; E44.0 Moderate protein-calorie malnutrition; E87.1 Hypo-osmolality and hyponatremia; K70.10 Alcoholic hepatitis without ascites; K70.30 Alcoholic cirrhosis of liver without ascites; K76.0 Fatty (change of) liver, not elsewhere classified; R74.8 Abnormal levels of other serum enzymes; E87.6 Hypokalemia; E80.6 Other disorders of bilirubin metabolism; E03.9 Hypothyroidism, unspecified; E66.9 Obesity, unspecified; F32.A Depression, unspecified; F17.210 Nicotine dependence, cigarettes, uncomplicated; N20.0 Calculus of kidney; Y90.6 Blood alcohol level of 120-199 mg/100 ml; F15.10 Other stimulant abuse, uncomplicated; F12.10 Cannabis abuse, uncomplicated; Z79.899 Other long term (current) drug therapy; Z88.8 Allergy status to other drugs, medicaments and biological substances; Z82.3 Family history of stroke; Z68.30 Body mass index [BMI] 30.0-30.9, adult; Z85.05 Personal history of malignant neoplasm of liver
CPT/HCPCS: 36415; 70450; 71045; 74177; 76705; 80053; 80307; 80320; 81001; 82140; 82270; 82962; 83605; 83690; 83735; 84100; 84132; 84443; 85025; 85610; 86850; 86900; 86901; 93005; 96361; 96374; 96375; 99291; G0378; J0131; J2003; J2405; J2470; J3490; J7042; J7060